=== PATIENT | female | born 1960 | race Caucasian/White ===

== ENCOUNTER → 2017-03-05 | Outpatient (CLI) | payer OTHER ==
--- NOTE | 2017-03-06 11:05 | MM ---
Reason for exam: screening (asymptomatic). Last mammogram was performed 1 year and 5 months ago. History: Patient is postmenopausal. Physical Findings: A clinical breast exam by your physician is recommended on an annual basis and results should be correlated with mammographic findings. MG Screening Mammo w CAD Bilateral CC and MLO view(s) were taken. Prior study comparison: October 20, 2015, bilateral MG screening mammo w CAD. There are scattered fibroglandular densities. No significant changes when compared with prior studies. ASSESSMENT: Benign, BI-RAD 2 RECOMMENDATION: Routine screening mammogram of both breasts in 1 year.
== END | disposition home or self-care (01) ==
LOC: RADMAMWWP 16:52
PROVIDERS: ATTEND Obstetrics & Gynecology
DX: Z12.31 Encounter for screening mammogram for malignant neoplasm of breast (principal)

== ENCOUNTER → 2017-06-23 | Outpatient (CLI) | payer OTHER ==
[2017-06-23 11:11] LABS: Calcium 9.4 mg/dL (8.4-10.2); Potassium 3.9 mmol/L (3.5-5.1); Total Bilirubin 0.4 mg/dL (0.2-1.3); Total Protein 6.7 g/dL (6.3-8.2)
== END | disposition home or self-care (01) ==
LOC: LABWHC1 09:59
PROVIDERS: ATTEND Internal Medicine Endocrinology, Diabetes & Metabolism
DX: E04.2 Nontoxic multinodular goiter (principal); E27.40 Unspecified adrenocortical insufficiency
CPT/HCPCS: 36415; 80053; 84439; 84443

== ENCOUNTER → 2017-08-06 | Outpatient (CLI) | payer OTHER ==
--- NOTE | 2017-08-06 17:02 | US ---
EXAMINATION TYPE: US thyroid st tissue head/neck DATE OF EXAM: 08/06/2017 COMPARISON: US 07/30/2013 CLINICAL HISTORY: E04.2 nontoxic multinodular goiter. GLAND SIZE: Right Lobe: 5.2 x 1.5 x 1.4 cm Overall Parenchyma: homogenous Left Lobe: 4.2 x 1.2 x 1.4 cm Overall Parenchyma: homogeneous Isthmus Thickness: 0.4 cm NODULES RIGHT: # of nodules measured on right: 1 1. 0.5 X 0.5 x 0.5 cm mixed nodule at the lower pole with well-defined margins; . This nodule is w ider than tall and shows no intranodular vascularity. Prior size: this nodule does not appear to correlate with nodule seen on prior exam. LEFT: # of nodules measured on left: 2 1. 1.0 X 0.7 x 0.9 cm isoechoic solid nodule at the lower pole with well-defined margins; . This n odule is wider than tall and shows intranodular vascularity. Prior size: 0.8 x 0.4 x 0.6 cm 2. 0.7 X 0.6 x 0.6 cm echogenic solid nodule at the lower pole with well-defined margins; . This no dule is wider than tall and shows intranodular vascularity. Prior size: 0.5 x 0.3 x 0.3 cm ISTHMUS: # of nodules measured in the isthmus: 0 Bilateral neck scanned, no evidence of lymphadenopathy. Nodules as described, there are a couple subcentimeter nodules right side. IMPRESSION: 1. Minimal enlargement of the left thyroid lobe nodule currently measuring 1.0 x 0.7 x 0.9 cm compare d to 0.8 x 0.6 x 0.4 cm.
== END | disposition home or self-care (01) ==
LOC: RADUSWWP 16:02
PROVIDERS: ATTEND Internal Medicine Endocrinology, Diabetes & Metabolism
DX: E04.1 Nontoxic single thyroid nodule (principal)
CPT/HCPCS: 76536

== ENCOUNTER 2017-11-17 22:44 | Emergency (ER) | payer OTHER ==
[2017-11-17] MEDS ORDERED: SODIUM CHLORIDE 0.9% 1,000 ML IV STA ×2 (23:20)
[2017-11-17] MEDS ORDERED: ACETAMINOPHEN IV (For NPO) 1,000 MG in EMPTY BAG 1 BAG IVPB ONE (23:21)
[2017-11-17] MEDS ORDERED: ONDANSETRON 4 MG/2 ML VIAL IVP STA (23:21)
--- NOTE | 2017-11-17 23:23 | ED ---
General Adult HPI - General Chief complaint: Nausea/Vomiting/Diarrhea Stated complaint: Vomiting Time Seen by Provider: 11/17/17 23:09 Source: patient, RN notes reviewed Mode of arrival: wheelchair Limitations: no limitations - History of Present Illness Initial comments: 57-year-old female history of adrenal insufficiency presents with chief complaint nausea and vomiting. Patient states she vomited approximately 15-20 times which began 6 hours prior to arrival. She denies any abdominal pain. She has had runny nose, and cough. She also complains of headache, and myalgias. Denies any abdominal pain. Denies chest pain. Patient does have a grandson who was diagnosed with influenza. - Related Data Home Medications Medication Instructions Recorded Confirmed Albuterol Inhaler [Ventolin Hfa 1 - 2 puff INHALATION RT-Q6H PRN 01/25/16 Inhaler] Atorvastatin [Lipitor] 10 mg PO HS 01/25/16 05/06/16 Budesonide [Pulmicort] 0.25 mg INHALATION RT-BID PRN 01/25/16 05/06/16 Cholecalciferol [Vitamin D3] 1,000 unit PO DAILY 01/25/16 05/06/16 FLUoxetine HCL [PROzac] 20 mg PO DAILY 01/25/16 05/06/16 Ferrous Sulfate [Feosol] 325 mg PO DAILY 01/25/16 05/06/16 Fluticasone/Salmeterol [Advair 1 puff INHALATION RT-BID 01/25/16 05/06/16 500-50 Diskus] Hydrocortisone [Cortef] 5 mg PO HS 01/25/16 05/06/16 Hydrocortisone [Cortef] 15 mg PO [facility] 01/25/16 05/06/16 Levalbuterol HCl [Xopenex] 1.25 mg INHALATION BID PRN 01/25/16 05/06/16 Montelukast [Singulair] 10 mg PO HS 01/25/16 05/06/16 Pantoprazole Sodium [Protonix] 40 mg PO BID 01/25/16 05/06/16 Vitamin E 1,000 unit PO DAILY 01/25/16 05/06/16 buPROPion XL [Wellbutrin Xl] 150 mg PO DAILY 01/25/16 05/06/16 Previous Rx's Medication Instructions Recorded Ondansetron Odt [Zofran Odt] 4 mg PO Q8HR PRN #10 tab 11/18/17 Oseltamivir [Tamiflu] 75 mg PO Q12HR #10 cap 11/18/17 Allergies Allergy/AdvReac Type Severity Reaction Status Date / Time ampicillin Allergy Rash/Hives Verified 11/17/17 23:29 Sulfa (Sulfonamide Allergy Rash/Hives Verified 11/17/17 23:29 Antibiotics) aspirin AdvReac Wheezing Verified 11/17/17 23:29 Review of Systems ROS Statement: Those systems with pertinent positive or pertinent negative responses have been documented in the HPI. ROS Other: All systems not noted in ROS Statement are negative. Past Medical History Past Medical History: Asthma, GERD/Reflux Additional Past Medical History / Comment(s): adrenal insuff. HX OF POLYP, HX OF BLOOD History of Any Multi-Drug Resistant Organisms: None Reported Past Surgical History: Tubal Ligation Additional Past Surgical History / Comment(s): COLONOSCOPY Past Anesthesia/Blood Transfusion Reactions: No Reported Reaction Past Psychological History: Depression Smoking Status: Never smoker Past Alcohol Use History: None Reported Past Drug Use History: None Reported - Past Family History Mother Family Medical History: No Reported History General Exam Limitations: no limitations General appearance: lethargic Head exam: Present: atraumatic, normocephalic Eye exam: Present: normal appearance, PERRL Respiratory exam: Present: normal lung sounds bilaterally. Absent: respiratory distress Cardiovascular Exam: Present: normal rhythm, tachycardia GI/Abdominal exam: Present: soft. Absent: distended, tenderness, guarding Extremities exam: Present: normal inspection, normal capillary refill. Absent: pedal edema Neurological exam: Present: alert, oriented X3, CN II-XII intact. Absent: motor sensory deficit Psychiatric exam: Present: normal affect, normal mood Skin exam: Present: warm, dry, intact. Absent: cyanosis, diaphoretic Course Vital Signs 11/17/17 11/17/17 22:52 23:57 Temperature 102.3 F H 101.7 F H Pulse Rate 122 H 110 H Respiratory 16 18 Rate Blood Pressure 122/66 125/60 O2 Sat by Pulse 96 95 Oximetry Medical Decision Making - Medical Decision Making 57-year-old female presenting with flulike symptoms. Patient is influenza positive, symptoms began today. Laboratory studies reveal elevated white blood cell count 14.7, hemoglobin 15.1. Electrolytes within normal limits. Lactic acid normal. Urinalysis clear. Chest x-ray negative for pneumonia. Patient given Zofran, and IV hydration. On reevaluation, patient states she feels 100% at her. She is offered observation for continued IV hydration and symptomatic treatment of nausea vomiting. She would not like to stay in the hospital. She has Cortef at home and is instructed to double her dose when she is ill. Patient is comfortable with this. Vomiting improved, no vomiting in the past 2 hours. Patient will return with any worsening or changing symptoms. - Lab Data Result diagrams: 11/17/17 23:55 11/17/17 23:55 Lab Results 11/17/17 11/17/17 11/17/17 Range/Units 22:55 23:55 23:55 WBC 14.7 H (3.8-10.6) k/uL RBC 5.50 H (3.80-5.40) m/uL Hgb 15.1 (11.4-16.0) gm/dL Hct 45.6 (34.0-46.0) % MCV 83.0 (80.0-100.0) fL MCH 27.5 (25.0-35.0) pg MCHC 33.1 (31.0-37.0) g/dL RDW 14.5 (11.5-15.5) % Plt Count 397 (150-450) k/uL Neutrophils % 85 % Lymphocytes % 8 % Monocytes % 5 % Eosinophils % 1 % Basophils % 1 % Neutrophils # 12.5 H (1.3-7.7) k/uL Lymphocytes # 1.2 (1.0-4.8) k/uL Monocytes # 0.7 (0-1.0) k/uL Eosinophils # 0.2 (0-0.7) k/uL Basophils # 0.1 (0-0.2) k/uL Sodium 139 (137-145) mmol/L Potassium 4.4 (3.5-5.1) mmol/L Chloride 100 (98-107) mmol/L Carbon Dioxide 27 (22-30) mmol/L Anion Gap 12 mmol/L BUN 19 H (7-17) mg/dL Creatinine 1.10 H (0.52-1.04) mg/dL Est GFR (MDRD) Af Amer >60 (>60 ml/min/1.73 sqM) Est GFR (MDRD) Non-Af 51 (>60 ml/min/1.73 sqM) Glucose 121 H (74-99) mg/dL Plasma Lactic Acid Kuldip (0.7-2.0) mmol/L Calcium 9.4 (8.4-10.2) mg/dL Total Bilirubin 0.6 (0.2-1.3) mg/dL AST 72 H (14-36) U/L ALT 87 H (9-52) U/L Alkaline Phosphatase 118 (38-126) U/L Total Protein 7.4 (6.3-8.2) g/dL Albumin 4.3 (3.5-5.0) g/dL Urine Color Urine Appearance (Clear) Urine pH (5.0-8.0) Ur Specific Kosse (1.001-1.035) Urine Protein (Negative) Urine Glucose (UA) (Negative) Urine Ketones (Negative) Urine Blood (Negative) Urine Nitrite (Negative) Urine Bilirubin (Negative) Urine Urobilinogen (<2.0) mg/dL Ur Leukocyte Esterase (Negative) Urine RBC (0-5) /hpf Urine WBC (0-5) /hpf Ur Squamous Epith Cells (0-4) /hpf Urine Mucus (None) /hpf Influenza Type A RNA Detected H (Not Detectd) Influenza Type B (PCR) Not Detected (Not Detectd) 11/17/17 11/17/17 Range/Units 23:55 23:55 WBC (3.8-10.6) k/uL RBC (3.80-5.40) m/uL Hgb (11.4-16.0) gm/dL Hct (34.0-46.0) % MCV (80.0-100.0) fL MCH (25.0-35.0) pg MCHC (31.0-37.0) g/dL RDW (11.5-15.5) % Plt Count (150-450) k/uL Neutrophils % % Lymphocytes % % Monocytes % % Eosinophils % % Basophils % % Neutrophils # (1.3-7.7) k/uL Lymphocytes # (1.0-4.8) k/uL Monocytes # (0-1.0) k/uL Eosinophils # (0-0.7) k/uL Basophils # (0-0.2) k/uL Sodium (137-145) mmol/L Potassium (3.5-5.1) mmol/L Chloride (98-107) mmol/L Carbon Dioxide (22-30) mmol/L Anion Gap mmol/L BUN (7-17) mg/dL Creatinine (0.52-1.04) mg/dL Est GFR (MDRD) Af Amer (>60 ml/min/1.73 sqM) Est GFR (MDRD) Non-Af (>60 ml/min/1.73 sqM) Glucose (74-99) mg/dL Plasma Lactic Acid Kuldip 1.3 (0.7-2.0) mmol/L Calcium (8.4-10.2) mg/dL Total Bilirubin (0.2-1.3) mg/dL AST (14-36) U/L ALT (9-52) U/L Alkaline Phosphatase (38-126) U/L Total Protein (6.3-8.2) g/dL Albumin (3.5-5.0) g/dL Urine Color Yellow Urine Appearance Clear (Clear) Urine pH 7.5 (5.0-8.0) Ur Specific Kosse 1.020 (1.001-1.035) Urine Protein 1+ H (Negative) Urine Glucose (UA) Negative (Negative) Urine Ketones Negative (Negative) Urine Blood Negative (Negative) Urine Nitrite Negative (Negative) Urine Bilirubin Negative (Negative) Urine Urobilinogen 2.0 (<2.0) mg/dL Ur Leukocyte Esterase Negative (Negative) Urine RBC 3 (0-5) /hpf Urine WBC 1 (0-5) /hpf Ur Squamous Epith Cells <1 (0-4) /hpf Urine Mucus Few H (None) /hpf Influenza Type A RNA (Not Detectd) Influenza Type B (PCR) (Not Detectd) Disposition Clinical Impression: Dehydration, Influenza Disposition: HOME SELF-CARE Condition: Good Instructions: Acute Nausea and Vomiting (ED), Influenza (ED) Prescriptions: Ondansetron Odt [Zofran Odt] 4 mg PO Q8HR PRN #10 tab PRN Reason: Vomiting Oseltamivir [Tamiflu] 75 mg PO Q12HR #10 cap Referrals: Jorge Alberto Saleh MD [Primary Care Provider] - 1-2 days Time of Disposition: 00:50
[2017-11-18 00:04] LABS: Basophils # (A) 0.1 k/uL (0-0.2); Basophils % (A) 1 %; Eosinophils # (A) 0.2 k/uL (0-0.7); Eosinophils % (A) 1 %; HCT 45.6 % (34.0-46.0); HGB 15.1 gm/dL (11.4-16.0); Lymphocytes # (A) 1.2 k/uL (1.0-4.8); Lymphocytes % (A) 8 %; MCH 27.5 pg (25.0-35.0); MCHC 33.1 g/dL (31.0-37.0); Monocytes # (A) 0.7 k/uL (0-1.0); Monocytes % (A) 5 %; Neutrophils # (A) 12.5 k/uL (1.3-7.7); Neutrophils % (A) 85 %; Platelet Count 397 k/uL (150-450); RDW 14.5 % (11.5-15.5); WBC 14.7 k/uL (3.8-10.6)
[2017-11-18 00:06] LABS: Appearance,Urine Clear (Clear); Bilirubin,Urine Negative (Negative); Blood,Urine Negative (Negative); Color,Urine Yellow; Glucose,Urine (UA) Negative (Negative); Ketones,Urine Negative (Negative); Leukocyte Esterase,Urine Negative (Negative); Mucus,Urine Few /hpf; PH, Urine 7.5 (5.0-8.0); Protein,Urine 1+ (Negative); RBC,Urine 3 /hpf (0-5); Squamous Epithelial Cell,Urine <1 /hpf (0-4); WBC,Urine 1 /hpf (0-5)
--- NOTE | 2017-11-18 00:12 | XR ---
EXAMINATION TYPE: XR chest 2V DATE OF EXAM: 11/18/2017 COMPARISON: 05/12/2012 HISTORY: Fever and vomiting TECHNIQUE: Frontal and lateral views of the chest are obtained. FINDINGS: Heart and mediastinum are normal. Lungs are clear. Diaphragm is normal. Bony thorax is int act. IMPRESSION: Normal chest. No change.
[2017-11-18 00:14] LABS: ALT 87 U/L (9-52); AST 72 U/L (14-36); Albumin 4.3 g/dL (3.5-5.0); Alkaline Phosphatase 118 U/L (38-126); Anion Gap 12 mmol/L; Blood Urea Nitrogen 19 mg/dL (7-17); Calcium 9.4 mg/dL (8.4-10.2); Carbon Dioxide 27 mmol/L (22-30); Chloride 100 mmol/L (98-107); Glucose 121 mg/dL (74-99); Potassium 4.4 mmol/L (3.5-5.1); Sodium 139 mmol/L (137-145); Total Bilirubin 0.6 mg/dL (0.2-1.3); Total Protein 7.4 g/dL (6.3-8.2)
[2017-11-18] MEDS ORDERED: ONDANSETRON 4 MG ODT STARTER PACK 2 TAB BTL PO STA (00:46)
[2017-11-18] MEDS ORDERED: OSELTAMIVIR 75 MG CAP PO STA (00:47)
[2017-11-18 01:45] VITALS: BP 110/58; PULSE 98; RESP 20; TEMP 98.4
== END 2017-11-18 01:45 | disposition home or self-care (01) ==
LOC: EC 22:44
DX: E86.0 Dehydration (principal); J11.1 Influenza due to unidentified influenza virus with other respiratory manifestations; J45.909 Unspecified asthma, uncomplicated; K21.9 Gastro-esophageal reflux disease without esophagitis; F32.9 Major depressive disorder, single episode, unspecified; Z98.51 Tubal ligation status; Z79.51 Long term (current) use of inhaled steroids; Z79.52 Long term (current) use of systemic steroids; Z79.899 Other long term (current) drug therapy; Z88.0 Allergy status to penicillin; Z88.2 Allergy status to sulfonamides; Z88.6 Allergy status to analgesic agent
CPT/HCPCS: 36415; 80053; 83605; 85025; 81001; 87502; 71046; 99284; 96374; 96375; 96361 ×2; J2405; J0131; S0119

== ENCOUNTER → 2018-12-22 | Outpatient (CLI) | payer OTHER ==
--- NOTE | 2018-12-23 11:25 | MM ---
Reason for exam: screening (asymptomatic). Last mammogram was performed 1 year and 10 months ago. History: Patient is postmenopausal. Physical Findings: A clinical breast exam by your physician is recommended on an annual basis and results should be correlated with mammographic findings. MG 3D Screening Mammo W/Cad Bilateral CC and MLO view(s) were taken. Prior study comparison: March 05, 2017, bilateral MG screening mammo w CAD. October 20, 2015, bilateral MG screening mammo w CAD. The breast tissue is heterogeneously dense. This may lower the sensitivity of mammography. Finding #1: There is a new 5 mm elongated circumscribed oval mass located 8 cm from the nipple in the upper outer quadrant, posterior position of the right breast on CC view 40/62 and MLO view 41/55. Finding #2: There are typically benign dystrophic, round, diffuse/scattered calcifications in both breasts. ASSESSMENT: Incomplete: need additional imaging evaluation, BI-RAD 0 RECOMMENDATION: Ultrasound of the right breast. [facility] will attempt to contact patient to return for ultrasound.
== END | disposition home or self-care (01) ==
LOC: RADMAMWWP 06:50
PROVIDERS: ATTEND Family Medicine
DX: Z12.31 Encounter for screening mammogram for malignant neoplasm of breast (principal)
CPT/HCPCS: 77063; 77067

== ENCOUNTER → 2018-12-25 | Outpatient (CLI) | payer OTHER ==
--- NOTE | 2018-12-25 09:46 | USB ---
Reason for exam: additional evaluation requested from abnormal screening. History: Patient is postmenopausal. Physical Findings: Nurse Summary: 0.5cm movable nodule right breast 12 o'clock (nurse mj). US Breast Workup Limited RT Right limited breast ultrasound including focal area of concern, retroareolar and axilla demonstrates a 0.4 x 0.4 x 0.4cm oval, solid, hyperechoic lesion at 12 o'clock. These results were verbally communicated with the patient and result sheet given to the patient on 12/25/18. ASSESSMENT: Suspicious, BI-RAD 4 RECOMMENDATION: Ultrasound core biopsy of the right breast. Manage patient on a clinical basis. Called Dr. Saleh with mammographic findings and left message for order and to schedule follow up appointment for results. Biopsy scheduled for 01/11/19 at 2:00. PRELIMINARY REPORT CALLED AND FAXED TO DR. SALEH ON 12/25/18.
== END ==
LOC: RADUSWWP 07:35
PROVIDERS: ATTEND Family Medicine
DX: R92.8 Other abnormal and inconclusive findings on diagnostic imaging of breast (principal)

== ENCOUNTER → 2019-01-11 | Day surgery (SDC) | payer OTHER ==
[2019-01-11 13:20] VITALS: BP 122/71; PULSE 78; RESP 16; TEMP 98.1; BMI 27.1
--- NOTE | 2019-01-11 17:02 | USB ---
EXAMINATION TYPE: US discontinued breast bx RT DATE OF EXAM: 01/11/2019 CLINICAL HISTORY: 58-year-old female R92.8 abn mammo. TECHNIQUE: Lambert ultrasound-guided core needle biopsy of the right breast. COMPARISON: 12/25/2018 and 12/22/2018 FINDINGS: The procedure of ultrasound guided core biopsy was explained to the patient. Benefits, alt ernatives, and risks were discussed. An informed consent was then obtained. The patient was placed in supine positioning for imaging and for the procedure. Initial scanning demonstrated a similar appearing 4 x 4 x 4 mm heterogeneous lesion showing periphera l echogenicity and central cystic component near the intended biopsy target 12:00, zone B/C. However, this structure is located more superficial than the intended target lesion. Nurse directed real-time scanning at the original palpable site was able to eventually reproduce the intended target lesion. However, this area appeared less defined. The patient denied blood thinner use. However, the patient does report brain children and frequent bu mps to the breast. Small hematomas are suggested. 3 month follow-up exam is recommended. Findings and impression are dis cussed with the patient. IMPRESSION: A second similar lesion to the originally intended biopsy target is identified just adjacent and orig inally intended biopsy target has become less defined now. Both areas measure 4 mm and small hematoma s are suspected especially as the patient reports frequent bones to the breasts. RECOMMENDATION: 1. BI-RADS 3 - probably benign 2. Three-month follow-up diagnostic right breast mammogram and right breast ultrasound. 3. Patient should continue monthly self breast exam.
== END | disposition home or self-care (01) ==
LOC: RADUSWWP 12:45
PROVIDERS: ATTEND Family Medicine
DX: R92.8 Other abnormal and inconclusive findings on diagnostic imaging of breast (principal)

== ENCOUNTER → 2019-01-19 | Outpatient (CLI) | payer OTHER ==
[2019-01-19 14:24] LABS: Basophils # (A) 0.2 k/uL (0-0.2); Basophils % (A) 2 %; Eosinophils # (A) 0.4 k/uL (0-0.7); Eosinophils % (A) 5 %; HGB 14.6 gm/dL (11.4-16.0); Lymphocytes # (A) 1.2 k/uL (1.0-4.8); Lymphocytes % (A) 14 %; MCH 26.4 pg (25.0-35.0); MCHC 32.4 g/dL (31.0-37.0); MCV 81.5 fL (80.0-100.0); Mean Platelet Volume 7.5; Monocytes # (A) 0.4 k/uL (0-1.0); Monocytes % (A) 5 %; Neutrophils # (A) 6.2 k/uL (1.3-7.7); Neutrophils % (A) 72 %; Platelet Count 452 k/uL (150-450); RBC 5.53 m/uL (3.80-5.40); RDW 14.9 % (11.5-15.5); WBC 8.6 k/uL (3.8-10.6)
[2019-01-19 14:33] LABS: ALT 42 U/L (9-52); AST 32 U/L (14-36); Albumin 4.5 g/dL (3.5-5.0); Albumin/Globulin Ratio 1.6; Alkaline Phosphatase 100 U/L (38-126); Amylase 75 U/L (30-110); Anion Gap 8 mmol/L; Blood Urea Nitrogen 26 mg/dL (7-17); Calcium 10.1 mg/dL (8.4-10.2); Carbon Dioxide 26 mmol/L (22-30); Chloride 106 mmol/L (98-107); Globulin 2.8 g/dL; Glucose 105 mg/dL (74-99); Lipase 105 U/L (23-300); Potassium 4.9 mmol/L (3.5-5.1); Sodium 140 mmol/L (137-145); Total Bilirubin 0.5 mg/dL (0.2-1.3); Total Protein 7.3 g/dL (6.3-8.2)
[2019-01-19 19:03] LABS: EBV-VCA (IgG) >8.0 AI
[2019-01-19 20:36] LABS: ACTH <5.00 pg/mL (0.00-45.99)
[2019-01-19 21:35] LABS: DHEA Sulfate 3.4 ug/dL (26.0-430.0)
[2019-01-20 05:29] LABS: Mycoplasma IgM Antibody 0.2 INDEX (<=0.90)
== END | disposition home or self-care (01) ==
LOC: LABWHC1 13:41
PROVIDERS: ATTEND Nurse Practitioner Adult Health
DX: E27.40 Unspecified adrenocortical insufficiency (principal); R07.9 Chest pain, unspecified; R11.0 Nausea; R53.83 Other fatigue
CPT/HCPCS: 36415; 80053; 82024; 82150; 82533; 82627; 83690; 84484; 85025; 85379; 86644; 86645; 86663; 86664; 86665; 86738

== ENCOUNTER → 2019-01-19 | Outpatient (CLI) | payer OTHER ==
--- NOTE | 2019-01-19 16:33 | CT ---
EXAMINATION TYPE: CT angio chest DATE OF EXAM: 01/19/2019 COMPARISON: 05/12/2012 HISTORY: 58-year-old female Elevated d-dimer, nausea and dizziness TECHNIQUE: Contiguous axial scanning of the chest performed with IV Contrast, patient injected with 1 00 mL of Isovue 370. Coronal/sagittal MIP reconstructions performed. CT DLP: 164.6 mGycm Automated exposure control for dose reduction was used. FINDINGS: Heart normal size without pericardial effusion. Aorta normal caliber with a variant direct takeoff of the left vertebral artery directly from the aor tic arch. Satisfactory opacification of the pulmonary arterial system. No flattening of the abdomen or ventricu lar septal reflux of contrast into the hepatic veins. No evidence for pulmonary embolism. No thoracic lymphadenopathy by CT size criteria. Mild diffuse bronchial wall thickening mild interstitial prominence. No consolidation or effusion. [id number] size hiatal hernia. Visualized upper abdomen shows [id number] stool burden. Bones: Mild degenerative disc disease mid to lower thoracic spine. No osseous destructive process. IMPRESSION: 1. NO EVIDENCE FOR PULMONARY EMBOLUS. 2. MILD BRONCHIAL WALL THICKENING AND MILD INTERSTITIAL PROMINENCE, POSSIBLE BRONCHITIS OR ASTHMA. 3. [id number] SIZE HIATAL HERNIA.
== END ==
LOC: RADCTMAIN 15:56
PROVIDERS: ATTEND Nurse Practitioner Adult Health
DX: R79.1 Abnormal coagulation profile (principal); K44.9 Diaphragmatic hernia without obstruction or gangrene
CPT/HCPCS: 71275; Q9967

== ENCOUNTER → 2020-04-18 | Outpatient (CLI) | payer OTHER ==
--- NOTE | 2020-04-18 19:32 | US ---
EXAMINATION TYPE: US thyroid st tissue head/neck DATE OF EXAM: 04/18/2020 COMPARISON: US 2017 CLINICAL HISTORY: E04.2 Nontoxic multinodular goiter. Thyroid nodules GLAND SIZE: Right Lobe: 4.8 x 1.4 x 1.7 cm Overall Parenchyma: homogenous Left Lobe: 4.4 x 1.4 x 1.5 cm Overall Parenchyma: homogeneous Isthmus Thickness: 0.3 cm NODULES RIGHT: # of nodules measured on right: 1 1. 0.6 X 0.5 x 0.6 cm hypoechoic mixed nodule at the mid pole with well-defined margins. This nodul e is wider than tall and shows intranodular vascularity. Prior size: 0.5 x 0.5 x 0.5 cm LEFT: # of nodules measured on left: 2 1. 1.3 X 0.8 x 1.1 cm hypoechoic mixed nodule at the lower pole with well-defined margins. This nod ule is wider than tall and shows intranodular vascularity. Prior size: 1.0 x 0.7 x 0.9 cm 2. 0.6 X 0.6 x 0.5 cm isoechoic solid nodule at the lower pole with poorly defined margins. This nod ule is wider than tall and shows intranodular vascularity. Prior size: 0.7 x 0.6 x 0.6 cm ISTHMUS: # of nodules measured in the isthmus: 0 Bilateral neck scanned, no evidence of lymphadenopathy. IMPRESSION: 1. Essentially stable thyroid nodules.
== END | disposition home or self-care (01) ==
LOC: RADUSWWP 16:12
PROVIDERS: ATTEND Internal Medicine
DX: E04.2 Nontoxic multinodular goiter (principal)
CPT/HCPCS: 76536

== ENCOUNTER → 2020-07-03 | Outpatient (CLI) | payer OTHER ==
--- NOTE | 2020-07-04 09:53 | MM ---
Reason for exam: additional evaluation requested from prior study. Last mammogram was performed 1 year and 6 months ago. History: Patient is postmenopausal. US discontinued breast bx RT of the right breast, January 11, 2019. Physical Findings: Nurse did not find any significant physical abnormalities on exam. MG 3D Diag Mammo W/Cad AKILAH Bilateral CC and MLO view(s) were taken. Prior study comparison: December 22, 2018, bilateral MG 3d screening mammo w/cad. March 05, 2017, bilateral MG screening mammo w CAD. There are scattered fibroglandular densities. Benign oil cyst calcification on the right breast. Previousl posterior right CC view asymmetric density does not persist. No significant new findings when compared with previous films. These results were verbally communicated with the patient and result sheet given to the patient on 07/03/20. ASSESSMENT: Negative, BI-RAD 1 RECOMMENDATION: Routine screening mammogram of both breasts in 1 year.
== END | disposition home or self-care (01) ==
LOC: RADMAMWWP 14:50
PROVIDERS: ATTEND Family Medicine
DX: R92.8 Other abnormal and inconclusive findings on diagnostic imaging of breast (principal)
CPT/HCPCS: 77062; 77066

== ENCOUNTER → 2021-01-18 | Outpatient (CLI) | payer OTHER ==
--- NOTE | 2021-01-18 17:36 | XR ---
EXAMINATION TYPE: XR chest 2V DATE OF EXAM: 01/18/2021 CLINICAL HISTORY: PNEUMONIA. TECHNIQUE: Frontal and lateral view of the chest. COMPARISON: 11/18/2017 FINDINGS: The cardiomediastinal silhouette is within normal limits for size. Pulmonary vasculature i s normal. There is no focal air space opacity. No pleural effusion. No pneumothorax seen. No acute d isplaced osseous fracture. IMPRESSION: No acute cardiopulmonary process.
[2021-01-18 23:34] LABS: HCT 48.3 % (37.2-46.3); MCHC 31.1 g/dL (32.0-37.0); MCV 86.9 fL (80.0-97.0); Mean Platelet Volume 10.5 fL (9.5-12.2); Platelet Count 492 X 10*3/uL (140-440); RBC 5.56 X 10*6/uL (4.10-5.20); RDW 14.1 % (11.5-14.5); WBC 12.47 X 10*3/uL (4.50-10.00)
[2021-01-19 12:49] LABS: African American GFR (CKD) 50.9 (60.0-200.0); Albumin/Globulin Ratio 1.92 (1.60-3.17); Anion Gap 17.2 mmol/L (4.00-12.00); BUN/Creat Ratio 23.08 Ratio (12.00-20.00); Calcium 10.1 mg/dL (8.7-10.3); Carbon Dioxide 22.8 mmol/L (21.6-31.8); Globulin 2.6 g/dL (1.6-3.3); Non-African American GFR(CKD) 43.9 (60.0-200.0); Potassium 4.8 mmol/L (3.5-5.5); Total Bilirubin 0.4 mg/dL (0.3-1.2); Total Protein 7.6 g/dL (6.2-8.2)
== END | disposition home or self-care (01) ==
LOC: LABWHC1 15:36
PROVIDERS: ATTEND Internal Medicine Interventional Cardiology
DX: J18.9 Pneumonia, unspecified organism (principal)
CPT/HCPCS: 36415; 71046; 80053; 85027

== ENCOUNTER → 2021-04-04 | Outpatient (CLI) | payer OTHER ==
--- NOTE | 2021-04-04 17:22 | CT ---
EXAMINATION TYPE: CT angio chest DATE OF EXAM: 04/04/2021 COMPARISON: 01/19/2019 HISTORY: Dyspnea x1 month. CT DLP: 381.6 mGycm Automated exposure control for dose reduction was used. CONTRAST: Performed with IV Contrast, patient injected with 60ml mL of Isovue 370. There are 3-D post processed images. Images obtained from the thoracic inlet to the diaphragm without and with IV contrast. The lungs are clear of infiltrate. There is no pleural effusion. Heart size is normal. There is no pe ricardial effusion. There is no mediastinal adenopathy. There are no hilar masses. There is normal contrast opacification of the pulmonary arteries. There are no filling defects. Thoracic aorta is intact. There is no aneur ysm or dissection. The ascending aorta measures 3.5 cm. Thoracic vertebra have normal spacing and alignment. Disc spaces are normal. There is no compression fracture. Sternum is intact. The ribs are intact. The upper abdominal soft tissues are intact. IMPRESSION: Negative exam. No evidence of pulmonary embolism. No adverse change compared to old exam.
== END | disposition home or self-care (01) ==
LOC: RADCTMAIN 16:39
PROVIDERS: ATTEND Family Medicine
DX: R06.00 Dyspnea, unspecified (principal)
CPT/HCPCS: 71275; Q9967

== ENCOUNTER → 2021-05-29 | Outpatient (CLI) | payer OTHER ==
--- NOTE | 2021-05-29 19:43 | US ---
EXAMINATION TYPE: US thyroid st tissue head/neck DATE OF EXAM: 05/29/2021 COMPARISON: 04/18/2020 CLINICAL HISTORY: 60-year-old female E04.1 thyroid nodule. Thyroid nodule. Hx biopsy. GLAND SIZE: Right Lobe: 5.2 x 1.6 x 1.3 cm Overall Parenchyma: homogenous Left Lobe: 5.3 x 1.4 x 1.2 cm Overall Parenchyma: homogeneous Isthmus Thickness: 0.31 cm NODULES RIGHT: # of nodules measured on right: 2 1. 0.7 X 0.7 x 0.5 cm, mid medial, heterogeneous, hypoechoic TR 4 nodule, which is wider than tall, with smooth margins, without echogenic foci. Prior size: 0.6 x 0.5 x 0.6 cm 2. 0.5 X 0.4 x 0.3 cm, lower, hypoechoic TR 4 nodule, which is wider than tall, with smooth margins , without echogenic foci. Prior size: No prior correlates. LEFT: # of nodules measured on left: 2 1. 0.8 X 0.8 x 0.7 cm, lower lateral, solid or almost completely solid, isoechoic TR 3 nodule, whic h is wider than tall, with smooth margins, without echogenic foci. Prior size: 0.6 x 0.6 x 0.5 cm 2. 0.9 X 0.7 x 0.5 cm, lower, heterogeneous hypoechoic TR5 nodule, which is wider than tall, with s mooth margins, with echogenic foci. Prior size: 1.3 x 0.8 x 1.1 cm ISTHMUS: # of nodules measured in the isthmus: 0 Bilateral neck scanned, no evidence of lymphadenopathy. IMPRESSION: 1. Findings suggest multinodular goiter. 2. There are a few solid TR4 nodules measuring up to 8 mm. A 5 mm TR 4 nodule on the right may be new and the two other TR4 nodules may have increased in size by a couple millimeters. These can continue to be followed. 3. At small 9 mm TR5 nodule (due to the presence of punctate calcifications) in the left lobe has dec reased in size, previously having measured 1.3 cm. This can also be reassessed at follow-up.
== END | disposition home or self-care (01) ==
LOC: RADUSWWP 15:02
PROVIDERS: ATTEND Family Medicine
DX: E04.2 Nontoxic multinodular goiter (principal)
CPT/HCPCS: 76536

== ENCOUNTER 2021-06-04 18:21 | Emergency (ER) | payer OTHER ==
[2021-06-04 18:29] VITALS: RESP 18
[2021-06-04] MEDS ORDERED: HYDROcodone/APAP 5-325MG 1 EACH TAB PO STA ×2 (18:53→22:11)
--- NOTE | 2021-06-04 19:45 | ED ---
Lower Extremity Injury HPI - General Chief Complaint: Extremity Injury, Lower Stated Complaint: Fall/ankle injury Time Seen by Provider: 06/04/21 18:42 Source: patient, EMS Mode of arrival: EMS Limitations: physical limitation - History of Present Illness Initial Comments: This is a 60-year-old female who presents emergency department for right ankle injury. The patient was walking in her garden when she tripped and fell. She states that she twisted her ankle and immediately had pain. She was unable to ambulate afterwards. She states she has no numbness, tingling, or weakness. She states that she has no other injuries. She did not hit her head. No loss of consciousness. She denies any other acute complaints. The patient was placed into a soft splint by EMS and brought emergent department. - Related Data Home Medications Medication Instructions Recorded Confirmed Atorvastatin [Lipitor] 10 mg PO HS 01/25/16 06/04/21 Budesonide [Pulmicort] 0.25 mg INHALATION RT-BID PRN 01/25/16 06/04/21 Hydrocortisone [Cortef] 15 mg PO DAILY 01/25/16 06/04/21 Montelukast [Singulair] 10 mg PO DAILY 01/25/16 06/04/21 Pantoprazole Sodium [Protonix] 40 mg PO BID 01/25/16 06/04/21 buPROPion XL [Wellbutrin Xl] 150 mg PO DAILY 01/25/16 06/04/21 Fluticasone/Salmeterol 1 puff INHALATION RT-BID 06/04/21 06/04/21 [Fluticasone-Salmeterol 232-14] Hydrocortisone [Cortef] 15 mg PO DAILY PRN 06/04/21 06/04/21 Previous Rx's Medication Instructions Recorded HYDROcodone/APAP 5-325MG [[place] 1 tab PO Q6HR PRN 3 Days #8 tab 06/04/21 5-325] Allergies Allergy/AdvReac Type Severity Reaction Status Date / Time ampicillin Allergy Rash/Hives Verified 01/11/19 13:13 Sulfa (Sulfonamide Allergy Rash/Hives Verified 01/11/19 13:13 Antibiotics) aspirin AdvReac Wheezing Verified 01/11/19 13:13 Review of Systems ROS Statement: Those systems with pertinent positive or pertinent negative responses have been documented in the HPI. ROS Other: All systems not noted in ROS Statement are negative. Past Medical History Past Medical History: Asthma, GERD/Reflux Additional Past Medical History / Comment(s): adrenal insuff. HX OF POLYP History of Any Multi-Drug Resistant Organisms: None Reported Past Surgical History: Tubal Ligation Additional Past Surgical History / Comment(s): COLONOSCOPY Past Anesthesia/Blood Transfusion Reactions: No Reported Reaction Past Psychological History: Depression Past Alcohol Use History: None Reported Past Drug Use History: None Reported - Past Family History Mother Family Medical History: No Reported History General Exam - General Exam Comments Initial Comments: Constitutional: Awake alert Appears comfortable Head: Normocephalic atraumatic Eyes: no conjunctival injection No scleral icterus EOMI Neck: No JVD Supple Heart: Regular rate rhythm normal S1-S2 no murmurs Lungs: Clear to auscultation bilaterally No wheezing No rales Abdomen: Soft nondistended nontender Extremities: Non edematous DP pulses intact Radial pulses intact, there is ecchymosis and swelling to the lateral aspect of the right ankle. She has some tenderness along the medial malleolus as well. Good sensation to the toes. Pulses are equal bilaterally and the feet. The patient's able to wiggle her toes bilaterally. Neuro: A&Ox3 No focal neurologic deficits Psych: Appropriate mood and affect Limitations: physical limitation Course Vital Signs 06/04/21 06/04/21 06/04/21 18:25 20:16 21:50 Temperature 98.1 F Pulse Rate 83 76 Respiratory 18 18 18 Rate Blood Pressure 133/76 134/72 O2 Sat by Pulse 98 98 Oximetry 06/04/21 22:18 Temperature 98.3 F Pulse Rate 75 Respiratory 18 Rate Blood Pressure 135/62 O2 Sat by Pulse 94 L Oximetry Procedures - Joint Aspiration/Injection Consent Obtained: verbal consent Indications: to relieve pressure/pain Side of Body: right Joint Aspirated: ankle Skin Prep: Chlorhexidine Local Anesthesia Used: Lidocaine 1% Amount of Anesthesia Used (mLs): 10 Needle Size Used: 22G Syringe Size Used: 10cc Patient Tolerated Procedure: well Complications: none - Orthopedic Splinting/Casting Injury #1 Side: right Lower Extremity Immobilizer: posterior splint, stirrup splint Other Orthopedic Equipment: crutches Medical Decision Making - Medical Decision Making This is 60-year-old female who presents emergency department for right ankle pain after a fall. The patient was found to have a bimalleolar fracture that was laterally displaced. The patient had a hematoma block performed of the right ankle with good relief of pain. It was attempted to manipulate the ankle and to get better alignment. The patient was placed into a posterior mold and stirrup splint. Repeat x-rays did not show much improvement in alignment however patient's going to have close follow-up with orthopedics and likely will require some type of surgical procedure given the extent of the injury. She'll be sent home on crutches and given pain medicine. Told to follow-up with [facility]. All questions answered. Disposition Clinical Impression: Bimalleolar ankle fracture Disposition: HOME SELF-CARE Condition: Stable Instructions (If sedation given, give patient instructions): Ankle Fracture (ED) Prescriptions: HYDROcodone/APAP 5-325MG [[place] 5-325] 1 tab PO Q6HR PRN 3 Days #8 tab PRN Reason: Pain Is patient prescribed a controlled substance at d/c from ED?: No When asked, does pt state using other controlled substances?: No If prescribed controlled substance>3 days was MAPS reviewed?: Prescribed <3 Days If opioid is for acute pain is fill amount 7 days or less?: Yes If Rx opioid, was Start Talking consent form obtained?: Yes Referrals: Jorge Alberto Saleh MD [Primary Care Provider] - 1-2 days Alistair Ramirez MD [Medical Doctor] - 1-2 days
--- NOTE | 2021-06-04 20:05 | XR ---
Result: History: Pain. Comparison: None available. Technique: 3 views of the right ankle. Findings: There is comminuted fracture of the distal fibula involving the lateral malleolus. There is also mild ly displaced fracture of the medial malleolus. There is mild widening of the medial clear space. No e vidence of dislocation. There is additional small subcentimeter ossific density at the dorsal aspect of the talus. Impression: Right ankle bimalleolar fracture with mild widening of the clear spaces. Subtle small talar fracture.
--- NOTE | 2021-06-04 20:58 | XR ---
Result: History: Pain. Comparison: None available. Technique: 3 views of the right knee. Findings: No acute fracture or dislocation is seen. The visualized osseous structures are in anatomic alignmen t. The joint spaces are preserved. Impression: No acute osseous abnormality.
[2021-06-04] MEDS ORDERED: LIDOCAINE 1% INJ 10MG/ML (20 ML MDV) SQ ONE (21:23)
[2021-06-04] MEDS ORDERED: ACET/COD 300 MG/30 MG STARTER PACK 6 TAB BTL PO STA (22:15)
[2021-06-04 22:19] VITALS: BP 135/62; PULSE 75; TEMP 98.3
--- NOTE | 2021-06-04 22:45 | XR ---
EXAMINATION TYPE: XR ankle limited RT DATE OF EXAM: 06/04/2021 COMPARISON: Today HISTORY: Post reduction TECHNIQUE: 2 views FINDINGS: There is bimalleolar fracture of the ankle. There is some comminution of the fibula fractur e. There is mild lateral subluxation of the talus 6 mm. IMPRESSION: Bimalleolar fracture with lateral displacement of the talus. No significant change overal l compared to initial exam. No dislocation.
== END 2021-06-04 22:34 | disposition home or self-care (01) ==
LOC: EC 18:21
DX: S82.841A Displaced bimalleolar fracture of right lower leg, initial encounter for closed fracture (principal); J45.909 Unspecified asthma, uncomplicated; K21.9 Gastro-esophageal reflux disease without esophagitis; F32.9 Major depressive disorder, single episode, unspecified; Z88.2 Allergy status to sulfonamides; Z88.5 Allergy status to narcotic agent; Z88.6 Allergy status to analgesic agent; Z98.51 Tubal ligation status; W01.0XXA Fall on same level from slipping, tripping and stumbling without subsequent striking against object, initial encounter; Y93.01 Activity, walking, marching and hiking
CPT/HCPCS: 99283; 29515; 73562; 73600; 73610; J2001

== ENCOUNTER → 2021-06-07 | Outpatient (CLI) | payer OTHER ==
--- NOTE | 2021-06-07 08:06 | CT ---
EXAMINATION TYPE: CT ankle RT wo con DATE OF EXAM: 06/07/2021 COMPARISON: Plain film x-ray 06/04/2021 HISTORY: Right ankle fracture CT DLP: 357.[address] of the right ankle with reconstruction imaging. TECHNIQUE: Unenhanced CT of the right shoulder was performed with bone and soft tissue window setting s submitted in the axial coronal and sagittal planes. At a separate workstation [id number] TR imaging was o btained. FINDINGS: There is medial malleolar fracture with displacement of 4 mm. Transversely oriented fractures at the level of the ankle mortise. There is comminuted distal fibular fracture involving the distal fibular diaphysis distending into the lateral malleolar region. Displacement of up to 3.2 mm. There is also m ildly comminuted posterior malleolar fracture with displacement of 3.4 mm. Anterior malleolar fractur e is also noted with comminution and displacement of 3.2 mm. There is disruption of the ankle mortise with narrowing laterally of 1 mm with widening medially of 5 mm. There is small avulsion fracture fr om the anterior talus seen best on the sagittal image 40 of 75. Additional osseous fractures are seen adjacent to the anterior portion of the calcaneus with curvilinear bony density seen on sagittal sebastien a set 33 of 75. There is extensive soft tissue edema or ligamentous tears are likely. IMPRESSION: 1. Fractures of the medial and lateral malleolus as well as the anterior and posterior malleolar with the disruption of the ankle mortise. Additional avulsion fractures of the talus and calcaneus as not ed.
== END | disposition home or self-care (01) ==
LOC: RADCTMAIN 06:59
PROVIDERS: ATTEND Orthopaedic Surgery
DX: S82.841A Displaced bimalleolar fracture of right lower leg, initial encounter for closed fracture (principal)

== ENCOUNTER → 2021-06-07 | Outpatient (CLI) | payer OTHER | END | disposition home or self-care (01) | LOC: LABWHC1 07:36 | PROVIDERS: ATTEND Family Medicine | DX: E55.9 Vitamin D deficiency, unspecified (principal) | CPT/HCPCS: 36415; 82306 ==

== ENCOUNTER 2021-06-09 23:19 | Emergency (ER) | payer OTHER ==
[2021-06-09 23:42] VITALS: BP 125/73; PULSE 88; RESP 20; TEMP 98.3
--- NOTE | 2021-06-10 02:29 | ED ---
Lower Extremity Injury HPI - General Chief Complaint: Extremity Injury, Lower Stated Complaint: Foot Issue/recheck Time Seen by Provider: 06/10/21 01:24 Source: patient Mode of arrival: wheelchair Limitations: no limitations - History of Present Illness Initial Comments: 60-year-old female presents to the emergency department with a chief complaint of foot pain. Patient reports several days ago she was diagnosed with a bimalleolar ankle fracture right ankle. States she has been wearing a splint and has ready seen the orthopedic doctor who advised her to continue wearing the splint until she undergo surgery. States she has not had any difficulty with the splint until yesterday when her grandson accidentally hit it. However, she states it was very gentle however now she began to develop some erythema along the dorsal aspect of the foot. She does report some pain due to pressure but denies any any fevers or chills. She states that her splint feels tight. States she has been applying Neosporin on it. She denies any paresthesias to the leg. - Related Data Home Medications Medication Instructions Recorded Confirmed Atorvastatin [Lipitor] 10 mg PO HS 01/25/16 06/04/21 Budesonide [Pulmicort] 0.25 mg INHALATION RT-BID PRN 01/25/16 06/04/21 Hydrocortisone [Cortef] 15 mg PO DAILY 01/25/16 06/04/21 Montelukast [Singulair] 10 mg PO DAILY 01/25/16 06/04/21 Pantoprazole Sodium [Protonix] 40 mg PO BID 01/25/16 06/04/21 buPROPion XL [Wellbutrin Xl] 150 mg PO DAILY 01/25/16 06/04/21 Fluticasone/Salmeterol 1 puff INHALATION RT-BID 06/04/21 06/04/21 [Fluticasone-Salmeterol 232-14] Hydrocortisone [Cortef] 15 mg PO DAILY PRN 06/04/21 06/04/21 Previous Rx's Medication Instructions Recorded HYDROcodone/APAP 5-325MG [[place] 1 tab PO Q6HR PRN 3 Days #8 tab 06/04/21 5-325] Cephalexin [Keflex] 500 mg PO Q6HR #40 cap 06/10/21 Allergies Allergy/AdvReac Type Severity Reaction Status Date / Time ampicillin Allergy Rash/Hives Verified 06/09/21 23:42 Sulfa (Sulfonamide Allergy Rash/Hives Verified 06/09/21 23:42 Antibiotics) aspirin AdvReac Wheezing Verified 06/09/21 23:42 Review of Systems ROS Statement: Those systems with pertinent positive or pertinent negative responses have been documented in the HPI. ROS Other: All systems not noted in ROS Statement are negative. Past Medical History Past Medical History: Asthma, GERD/Reflux Additional Past Medical History / Comment(s): adrenal insuff. HX OF POLYP History of Any Multi-Drug Resistant Organisms: None Reported Past Surgical History: Tubal Ligation Additional Past Surgical History / Comment(s): COLONOSCOPY Past Anesthesia/Blood Transfusion Reactions: No Reported Reaction Past Psychological History: Depression Smoking Status: Never smoker Past Alcohol Use History: None Reported Past Drug Use History: None Reported - Past Family History Mother Family Medical History: No Reported History General Exam Limitations: no limitations General appearance: alert, in no apparent distress Head exam: Present: atraumatic, normocephalic, normal inspection Eye exam: Present: normal appearance, PERRL, EOMI Pupils: Present: normal accommodation ENT exam: Present: normal exam, normal oropharynx, mucous membranes moist Neck exam: Present: normal inspection, full ROM. Absent: tenderness Respiratory exam: Present: normal lung sounds bilaterally. Absent: respiratory distress Cardiovascular Exam: Present: regular rate, normal rhythm, normal heart sounds. Absent: systolic murmur Extremities exam: Present: tenderness (Tenderness over the injured site), normal capillary refill, other (Palpable DP and PT bilaterally. Sensation intact in the right leg). Absent: normal inspection (Mild erythema noted dorsal aspect of the foot. Does not appear to be warm. The rest of the skin.), full ROM (Limited range of motion in the right leg), pedal edema, joint swelling, calf tenderness Back exam: Present: normal inspection, full ROM Neurological exam: Present: alert, oriented X3 Psychiatric exam: Present: normal affect, normal mood Skin exam: Present: warm, dry, intact, normal color Course Vital Signs 06/09/21 23:39 Temperature 98.3 F Pulse Rate 88 Respiratory 20 Rate Blood Pressure 125/73 O2 Sat by Pulse 97 Oximetry Medical Decision Making - Medical Decision Making 60-year-old female presents to the emergency department with a chief complaint of right leg pain. I reviewed her medical records and the patient has a bimalleolar fracture of the right leg. She is neurovascularly intact. She had a posterior splint with ankle stirrup applied. I removed the splint because the patient continued to complain that it felt tight. There is some erythematous changes on the dorsal aspect of the right foot, however I do not suspect this to be infectious at this time. Suspect more inflammatory change. However, I will cover for cellulitis prophylactically. I did apply the same posterior splint but he used a new ankle stirrup in order to help alleviate the feeling of tightness. Patient reportedly feels much better and the pressure has been greatly reduced. Strict return parameters were thoroughly discussed the patient was resting and agreeable. Disposition Clinical Impression: Foot pain, right Disposition: HOME SELF-CARE Condition: Stable Instructions (If sedation given, give patient instructions): Foot Contusion (ED) Additional Instructions: Please return to the Emergency Department if symptoms worsen or any other concerns. Prescriptions: Cephalexin [Keflex] 500 mg PO Q6HR #40 cap Is patient prescribed a controlled substance at d/c from ED?: No Referrals: Jorge Alberto Saleh MD [Primary Care Provider] - 1-2 days Time of Disposition: 03:08
[2021-06-10] MEDS ORDERED: CEPHALEXIN 500 MG CAP PO STA (03:06)
== END 2021-06-10 03:29 | disposition home or self-care (01) ==
LOC: EC 23:19
DX: M79.671 Pain in right foot (principal); J45.909 Unspecified asthma, uncomplicated; K21.9 Gastro-esophageal reflux disease without esophagitis; Z88.0 Allergy status to penicillin; Z88.2 Allergy status to sulfonamides; Z88.6 Allergy status to analgesic agent; Z79.899 Other long term (current) drug therapy; Z79.51 Long term (current) use of inhaled steroids
CPT/HCPCS: 99283

== ENCOUNTER → 2021-06-12 | Outpatient (CLI) | payer OTHER ==
[2021-06-12 14:37] LABS: Basophils # (A) 0.1 k/uL (0-0.2); Basophils % (A) 1 %; Eosinophils # (A) 0.6 k/uL (0-0.7); Eosinophils % (A) 5 %; HCT 41.7 % (34.0-46.0); Lymphocytes % (A) 19 %; MCH 27.7 pg (25.0-35.0); MCHC 31.3 g/dL (31.0-37.0); MCV 88.5 fL (80.0-100.0); Mean Platelet Volume 7.1; Monocytes # (A) 0.5 k/uL (0-1.0); Monocytes % (A) 5 %; Neutrophils % (A) 68 %; Platelet Count 517 k/uL (150-450); RBC 4.71 m/uL (3.80-5.40); RDW 13.3 % (11.5-15.5); WBC 10.4 k/uL (3.8-10.6)
[2021-06-12 14:44] LABS: ALT 29 U/L (4-34); AST 34 U/L (14-36); African American GFR (CKD) 63 (>60 ml/min/1.73 sqM); Albumin/Globulin Ratio 1.4; Alkaline Phosphatase 105 U/L (38-126); Anion Gap 9 mmol/L; Blood Urea Nitrogen 29 mg/dL (7-17); Calcium 9.5 mg/dL (8.4-10.2); Carbon Dioxide 28 mmol/L (22-30); Chloride 103 mmol/L (98-107); Globulin 2.8 g/dL; Glucose 96 mg/dL (74-99); Non-African American GFR(CKD) 55 (>60 ml/min/1.73 sqM); Potassium 4.4 mmol/L (3.5-5.1); Sodium 140 mmol/L (137-145); Total Bilirubin 0.6 mg/dL (0.2-1.3); Total Protein 6.8 g/dL (6.3-8.2)
[2021-06-12 14:45] LABS: INR 0.9 (<1.2); Prothrombin Time 10.2 sec (9.0-12.0)
== END | disposition home or self-care (01) ==
LOC: LABWHC1 14:10
PROVIDERS: ATTEND Nurse Practitioner Adult Health
DX: Z01.812 Encounter for preprocedural laboratory examination (principal)
CPT/HCPCS: 36415; 80053; 85025; 85610

== ENCOUNTER 2021-06-13 10:38 | Observation (INO) | payer OTHER ==
[2021-06-12 12:54] VITALS: BMI 28.3
[~2021-06-13 10:38] MED LIST: LIDOCAINE 1% (10MG/ML) FOR IV START INTRADERMA PRN; ONDANSETRON 4 MG/2 ML VIAL IVP ONE; SCOPOLAMINE 1.5MG/72HR PATCH TRANSDERM ONE
[2021-06-13] MEDS ORDERED: HYDROCORTISONE SUCCINATE 100 MG/2 ML VIAL IV STA ×2 (11:30→11:31)
[2021-06-13] MEDS: LACTATED RINGERS 1,000 ML IV SCH ×3 (11:49→17:56)
[2021-06-13] MEDS ORDERED: MIDAZOLAM 2 MG/2 ML VIAL IVP ONE (12:17)
[2021-06-13] MEDS ORDERED: fentaNYL (PF) 50 MCG/ML 2 ML AMP IVP ONE (12:17)
--- NOTE | 2021-06-13 12:54 | P.ANPRN ---
Procedure Note - Anesthesia - Nerve Block Performed Right Popliteal Single Time Out Performed: Yes (1215) Date of Procedure: 06/13/21 Procedure Start Time: 12:17 Procedure Stop Time: 12:22 Location of Patient: PreOp Indication: Acute Post-Operative Pain, Requested by Surgeon Specifically requested for management of pain by DrJesse: Alistair Ramirez Sedation Type: Sedate with meaningful contact maintained Preparation: Sterile Prep Position: Left Lateral Catheter: None Needle Types: Pajunk Needle Gauge: 21 Ultrasound used to visualize needle placement: Yes Ultrasound used to observe medication spread: Yes Injectate: 0.5% Ropivacaine (see comment for volume) (15cc +5cc nacl) Blood Aspirated: No Pain Paresthesia on Injection Noted: No Resistance on Injection: Normal Image Stored and Saved: Yes Events: Uneventful and Well Tolerated Right Adductor Canal Single Time Out Performed: Yes (1215) Date of Procedure: 06/13/21 Procedure Start Time: 12:23 Procedure Stop Time: 12:28 Location of Patient: PreOp Indication: Acute Post-Operative Pain, Requested by Surgeon Specifically requested for management of pain by Dr.: Alistair Ramirez Sedation Type: Sedate with meaningful contact maintained Preparation: Sterile Prep Position: Supine Catheter: None Needle Types: Pajunk Needle Gauge: 21 Ultrasound used to visualize needle placement: Yes Ultrasound used to observe medication spread: Yes Injectate: 0.5% Ropivacaine (see comment for volume) (15cc + 5cc nacl pf) Blood Aspirated: No Pain Paresthesia on Injection Noted: No Resistance on Injection: Normal Image Stored and Saved: Yes Events: Uneventful and Well Tolerated
[2021-06-13] MEDS ORDERED: PROPOFOL 10 MG/ML 20 ML VIAL IV ONE (13:19)
[2021-06-13] MEDS ORDERED: ROPIVACAINE 5 MG/ML 30 ML VIAL ONE (13:19)
[2021-06-13] MEDS ORDERED: SODIUM CHLORIDE 0.9% (PF) 10 ML VIAL ONE (13:19)
[2021-06-13] MEDS ORDERED: fentaNYL (PF) 50 MCG/ML 2 ML AMP ONE (13:19)
[2021-06-13] MEDS ORDERED: ALBUTEROL HFA INHALER INHALATION ONE (13:19)
[2021-06-13] MEDS ORDERED: SUCCINYLCHOLINE CHLORIDE 100 MG/5 ML SYR IV ONE (13:19)
[2021-06-13] MEDS ORDERED: LIDOCAINE 1% INJ 10MG/ML (20 ML MDV) ONE (13:19)
--- NOTE | 2021-06-13 15:05 | XR ---
Fluoroscopy History: ORIF RT ANKLE DR. CONKLIN SUPERVISED USE OF BELA TO REPAIR A FRACTURED RIGHT ANKLE. FL TIME OF1.16 MINS
[2021-06-13] MEDS ORDERED: HYDROcodone/APAP 5-325MG 1 EACH TAB PO PRN (15:21)
[2021-06-13] MEDS ORDERED: SENNOSIDES-DOCUSATE SODIUM 1 EACH TAB PO PRN (15:21)
[2021-06-13] MEDS ORDERED: hydrOXYzine pamoate 25 MG CAP PO PRN (15:21)
[2021-06-13] MEDS ORDERED: HYDROmorphone 1 MG/ML 1 ML SYRINGE IVP PRN (15:21)
[2021-06-13] MEDS ORDERED: HYDROmorphone 0.2 MG/1 ML SYRINGE IVP PRN (15:21)
[2021-06-13] MEDS: HYDROmorphone 0.5 MG/0.5 ML SYRINGE IVP PRN ×2 (15:29→15:35)
--- NOTE | 2021-06-13 15:33 | P.OP ---
Date of Procedure: 06/13/21 Preoperative Diagnosis: 1. Closed right trimalleolar ankle fracture dislocation 2. Chronic steroid use due to adrenal insufficiency Postoperative Diagnosis: Same Procedure(s) Performed: 1. Open reduction internal fixation of right trimalleolar ankle fracture (open reduction and internal fixation of medial and lateral malleolus, nonoperative management posterior malleolus) 2. Manual application of joint stress for radiography, right ankle 3. Application of short-leg splint by physician, right ankle Anesthesia: ARACELI, regional Surgeon: Alistair Ramriez Technical Consultant #1: Shirlene Marques Estimated Blood Loss (ml): 25 Pathology: none sent Condition: stable Disposition: PACU Indications for Procedure: The patient is a very pleasant 60-year-old female who fell and sustained a left ankle fracture dislocation. She underwent closed reduction and splint application in the emergency department. She followed up in my office for definitive management. I recommended open reduction and internal fixation once her swelling had subsided. She is on chronic steroids for adrenaline sufficiency and we discussed the potential risks of this and how it increased the complexity of her surgery. We discussed the potential risks and complications of surgery including but not limited to risk of anesthesia, superficial infection, deep infection, delayed wound healing, wound necrosis, nonunion, malunion, malreduction of the ankle mortise, symptomatically hardware, damage to local blood vessels or nerves, inability to regain preinjury level of function, DVT, PE, other medical complications, and possibly loss of life or limb. The patient voiced understanding of these potential complications and also acknowledges that other less common complications are possible. She provided her verbal and written consent to go forward with surgery. Description of Procedure: The patient was identified in preoperative holding and the correct right leg was marked my initials. I reviewed the consent form with the patient and her . All their questions were answered. She was given a block by anesthesia. She was brought back to the operating room and positioned on the OR table where a general anesthetic and preoperative antibiotics were given. A tourniquet was applied the proximal aspect of the right leg. Prior to prepping and draping imaging was taken of the left ankle to use as an intraoperative template. The right leg was then prepped and draped in the standard sterile fashion. Prior to starting surgery timeout was performed identifying the correct patient, operative extremity, and procedure. The leg was then elevated, exsanguinated with an Esmarch and age, and the tourniquet was inflated to 250 mmHg. Due to the significant comminution in the fibula I elected to reduce and fixate the medial malleolus first to allow gnosticist of fibular length. A longitudinal incision was made over the medial malleolus. Skin incision was made a scalpel and dissection was carried down carefully with tenotomy scissors. The periosteum over the medial malleolus was sharply incised. The patient was noted to have very poor bone quality. A 2.0 mm drill bit was used to create a unicortical perforation just proximal to the fracture. One gladys of a [id number] reduction clamp was placed in this hole and the second gladys was placed at the tip of the medial malleolus. I very gently tightened the clamp which nicely reapproximated the fracture. I then placed a single 4.0 partially threaded screw across the fracture generating excellent compression. Due to the comminution anteriorly and the placement of the screw I elected to only place a single screw for fear of further damaging the area of comminution. Attention was then turned to the lateral malleolus. A 3 cm incision was made distally over the tip of the distal fibula and a second 3 cm incision was made just proximal to the fracture over the shaft of the fibula. Distally dissection was carried down and the periosteum was elevated off of the fibula. Proximally the peroneal fascia was incised longitudinally in line with the skin incision and dissection was carried down to the lateral fibula. A [id number] reduction clamp was used to pull the distal fibula longitudinally until the left ankle mortise and fibular length was comparable to the preoperative image of the left ankle. A 0.0625 K wire was placed eccentric leg to the fibula to hold fibular length. I then placed a precontoured fibular plate from the distal wound proximally. It was centered over the fibula proximally and distally. 3 nonlocking 3.5 screws were placed proximally nicely bringing the plate down to bone. Distally 4 locking 3.5 mm screws were placed. Due to the patient's poor bone quality a tri cortical syndesmotic screws place for added fixation. At this point final fluoroscopic images were taken a mortise view showed anatomic reduction of the ankle mortise and gnosticist of fibular length. A manual external rotation stress x-ray showed no widening of the medial clear space or incisura. A 2 lateral showed the talus concentrically reduced under the tibial plafond. The posterior malleolus was minimally displaced. All 3 wounds were then thoroughly irrigated and closed in layers. Sterile dressings were applied followed by a well-padded bulky Whitt splint with the ankle neutral. The patient was then awoken from her anesthetic, transferred from the OR table to a gurney, and brought to recovery having tolerated the procedure well. Shirlene Marques PAC was required as a skilled household assistant due to the complexity of the case. PLAN: She'll be admitted overnight due to her need for IV steroids. She'll receive 2 doses of postoperative antibiotics. She will receive 100 mg of hydrocortisone IV every 8 hours until she is able to tolerate oral diet and then we'll take hydrocortisone 30 mg daily 1 week after surgery. We will double check her aspirin ALLERGY and if she can tolerate aspirin will give her aspirin 81 mg twice a day 4 weeks as she has low risk for DVT. She'll be nonweightbearing for at least 6-8 weeks due to her poor bone quality and chronic steroid use.
[2021-06-13 17:13] LABS: Glucose,Whole Blood 125 mg/dL (75-99)
[2021-06-13] MEDS: HYDROcodone/APAP 5-325MG 1 EACH TAB PO PRN (17:55)
[2021-06-13] MEDS: HYDROCORTISONE SUCCINATE 100 MG/2 ML VIAL IV SCH (17:56)
--- NOTE | 2021-06-13 18:01 | P.CONS ---
History of Present Illness - Reason for Consult Consult date: 06/13/21 - Chief Complaint Med mgmt - History of Present Illness 60 year old woman with history of Asthma, adrenal insufficiency, mood disorder, hyperlipidemia, GERD presented for ORIF for ankle fracture. Medicine consulted for medical management. Patients only complaint at the moment is pain in the ankle, but this is controlled. Denies fevers, chills, n/v, cp, palps, cough, dyspnea, abd pain, c/d, dysuria, dyschezia, numbness/weakness, lightheadedness, dizziness. Review of Systems All Systems reviewed and pertinent positives and negatives noted in HPI, all other symptoms are negative Past Medical History Past Medical History: Asthma, GERD/Reflux Additional Past Medical History / Comment(s): adrenal insuff. HX OF POLYP. FX RT ANKLE 06/04/21. RT ANKLE ORIF 06/13/21 History of Any Multi-Drug Resistant Organisms: None Reported Past Surgical History: Tubal Ligation Additional Past Surgical History / Comment(s): COLONOSCOPY Past Anesthesia/Blood Transfusion Reactions: No Reported Reaction Past Psychological History: Depression Smoking Status: Never smoker Past Alcohol Use History: None Reported Past Drug Use History: None Reported - Past Family History Mother Family Medical History: No Reported History Medications and Allergies Home Medications Medication Instructions Recorded Confirmed Type Atorvastatin [Lipitor] 10 mg PO HS 01/25/16 06/12/21 History Budesonide [Pulmicort] 0.25 mg INHALATION RT-BID PRN 01/25/16 06/12/21 History Hydrocortisone [Cortef] 15 mg PO DAILY 01/25/16 06/12/21 History Montelukast [Singulair] 10 mg PO DAILY 01/25/16 06/12/21 History Pantoprazole Sodium [Protonix] 40 mg PO BID 01/25/16 06/12/21 History buPROPion XL [Wellbutrin Xl] 150 mg PO DAILY 01/25/16 06/12/21 History Fluticasone/Salmeterol 1 puff INHALATION RT-BID 06/04/21 06/12/21 History [Fluticasone-Salmeterol 232-14] HYDROcodone/APAP 5-325MG [[place] 1 tab PO Q6HR PRN 3 Days #8 tab 06/04/21 06/12/21 Rx 5-325] Hydrocortisone [Cortef] 15 mg PO DAILY PRN 06/04/21 06/12/21 History Cephalexin [Keflex] 500 mg PO Q6HR #40 cap 06/10/21 06/12/21 Rx Vilazodone HCl [Viibryd] 20 mg PO DAILY 06/12/21 06/12/21 History Allergies Allergy/AdvReac Type Severity Reaction Status Date / Time ampicillin Allergy Rash/Hives Verified 06/13/21 11:21 Sulfa (Sulfonamide Allergy Rash/Hives Verified 06/13/21 11:21 Antibiotics) aspirin AdvReac Wheezing Verified 06/13/21 11:21 Physical Exam Osteopathic Statement: *. No significant issues noted on an osteopathic structural exam other than those noted in the History and Physical/Consult. Vitals: Vital Signs Temp Pulse Pulse Resp BP Pulse Ox 06/13/21 16:31 83 16 149/68 92 L 06/13/21 16:17 82 18 143/69 98 06/13/21 16:02 88 18 144/67 100 06/13/21 15:47 82 18 150/87 100 06/13/21 15:32 92 18 148/70 99 06/13/21 15:22 97 F L 97 18 153/70 98 06/13/21 12:27 82 16 142/65 98 06/13/21 11:23 97.8 F 92 18 146/70 97 Intake and Output 06/13/21 06/13/21 06/13/21 06:59 14:59 22:59 Intake Total 150 500 Output Total 125 Balance 25 500 Intake: IV 150 500 Output: Urine 100 Estimated Blood Loss 25 Other: Weight 75.8 kg 75.8 kg Gen: awake, alert HEENT: normocephalic, atraumatic, good hearing acuity, moist mucous membranes Resp: good air exchange, breathing comfortably with no accessory muscle use CVS: good distal perfusion x 4, GI: soft, NTTP, ND : no SPT, no CVAT, correa catheter not present MSK: no pitting edema, no clubbing Neuro: non-focal, moving all extremities Psych: cooperative, euthymic mood Results Labs: Abnormal Lab Results - Last 24 Hours (Table) 06/13/21 Range/Units 17:12 POC Glucose (mg/dL) 125 H (75-99) mg/dL Assessment and Plan Assessment: Adrenal Insufficiency - agree with stress dose steroids, 100mg IV q8h hydrocortisone - if tolerating PO tomorrow, can return to PO home dose Asthma Hyperlipidemia GERD Mood Disorder - home medications reviewed and reconciled, no changes made at this time, okay to resume A member of [employer] is available 07/04 via perfect serve, please reach out if any questions or concerns.
[2021-06-14] MEDS: HYDROCORTISONE SUCCINATE 100 MG/2 ML VIAL IV SCH ×2 (00:03→08:02)
[2021-06-14] MEDS: LACTATED RINGERS 1,000 ML IV SCH ×3 (03:31→12:08)
[2021-06-14] MEDS: HYDROmorphone 0.5 MG/0.5 ML SYRINGE IVP PRN ×2 (04:32→09:17)
[2021-06-14] MEDS: ONDANSETRON 4 MG/2 ML VIAL IVP PRN ×2 (04:33→09:19)
[2021-06-14] MEDS: HYDROcodone/APAP 5-325MG 1 EACH TAB PO PRN ×4 (05:56→20:59)
[2021-06-14] MEDS: MONTELUKAST 10 MG TAB PO SCH (07:11)
[2021-06-14] MEDS: PANTOPRAZOLE 40 MG TABLET PO SCH ×2 (07:12→20:58)
[2021-06-14] MEDS: buPROPion XL 150 MG TAB.ER.24H PO SCH (07:12)
[2021-06-14] MEDS: SYMBICORT 160-4.5 MCG INHALER INHALATION SCH ×2 (07:39→20:36)
[2021-06-14] MEDS ORDERED: BUDESONIDE 0.25 MG/2 ML NEBU INHALATION PRN (08:00)
[2021-06-14 09:18] LABS: Basophils # (A) 0.05 X 10*3/uL (0.00-0.10); Basophils % (A) 0.3 %; Eosinophils # (A) 0 X 10*3/uL (0.04-0.35); Eosinophils % (A) 0 %; HCT 35.4 % (37.2-46.3); HGB 11.1 g/dL (12.0-15.0); Lymphocytes # (A) 1.06 X 10*3/uL (0.90-5.00); Lymphocytes % (A) 6.5 %; MCH 27.2 pg (27.0-32.0); MCHC 31.4 g/dL (32.0-37.0); MCV 86.8 fL (80.0-97.0); Mean Platelet Volume 9.9 fL (9.5-12.2); Monocytes # (A) 0.79 X 10*3/uL (0.20-1.00); Monocytes % (A) 4.8 %; Neutrophils # (A) 14.32 X 10*3/uL (1.80-7.70); Neutrophils % (A) 87.8 %; Platelet Count 536 X 10*3/uL (140-440); RBC 4.08 X 10*6/uL (4.10-5.20); RDW 13.5 % (11.5-14.5); WBC 16.32 X 10*3/uL (4.50-10.00)
--- NOTE | 2021-06-14 10:24 | P.PN ---
Subjective Progress Note Date: 06/14/21 Gen: awake, alert HEENT: normocephalic, atraumatic, good hearing acuity, moist mucous membranes Resp: good air exchange, breathing comfortably with no accessory muscle use CVS: good distal perfusion x 4, GI: soft, NTTP, ND : no SPT, no CVAT, correa catheter not present MSK: no pitting edema, no clubbing Neuro: non-focal, moving all extremities Psych: cooperative, euthymic mood Objective - Vital Signs Vital signs: Vital Signs Temp 97.6 F 06/14/21 08:00 Pulse 90 06/14/21 08:00 Resp 16 06/14/21 08:00 BP 128/65 06/14/21 08:00 Pulse Ox 96 06/14/21 08:00 Intake & Output 06/13/21 06/14/21 06/14/21 18:59 06:59 18:59 Intake Total 650 Output Total 125 500 Balance 525 -500 Weight 75.8 kg Intake: IV 650 Output: Urine 100 500 Estimated Blood Loss 25 Other: Voiding Method Toilet Bedpan Bedside Commode # Voids 4 - Labs Labs: Abnormal Lab Results - Last 24 Hours (Table) 06/13/21 Range/Units 17:12 POC Glucose (mg/dL) 125 H (75-99) mg/dL Assessment and Plan Assessment: Adrenal Insufficiency - agree with stress dose steroids, 100mg IV q8h hydrocortisone - if tolerating PO tomorrow, can return to PO stress dose on 06/15 Asthma Hyperlipidemia GERD Mood Disorder - home medications reviewed and reconciled, no changes made at this time, okay to resume A member of sound physicians is available 07/04 via perfect serve, please reach out if any questions or concerns.
[2021-06-14] MEDS: ASPIRIN 81 MG PO SCH ×2 (12:08→20:58)
--- NOTE | 2021-06-14 16:41 | P.PN ---
Subjective Progress Note Date: 06/14/21 This patient is a 60-year-old female who is status-post right ankle ORIF on 06/13/[address] Ramirez. Today is postoperative day #1. The patient is seen and examined bedside this morning. She states she is experiencing moderate pain in her ankle. She states she was up to the bathroom yesterday after surgery. She is voiding without issue. She has been using IV Dilaudid and oral [place] for pain control. Patient states she has taken aspirin in the past and has tolerated it well. She tolerated her breakfast well and is eating without issue. She denies chest pain, shortness of breath, nausea, vomiting, fevers, chills. There are no new complaints this morning. Vital signs stable. Objective - Vital Signs Vital signs: Vital Signs Temp 98.8 F 06/14/21 13:19 Pulse 93 06/14/21 13:19 Resp 16 06/14/21 13:19 BP 132/68 06/14/21 13:19 Pulse Ox 94 L 06/14/21 13:19 Intake & Output 06/13/21 06/14/21 06/14/21 18:59 06:59 18:59 Intake Total 650 Output Total 125 500 Balance 525 -500 Weight 75.8 kg Intake: IV 650 Output: Urine 100 500 Estimated Blood Loss 25 Other: Voiding Method Toilet Bedpan Bedside Commode # Voids 4 3 - Exam On examination, the patient is sitting up in bed in no apparent distress. She is alert and oriented 3. On inspection of her right ankle, there is a clean, dry, intact bulky Whitt splint placed. The visible portion of the toes are warm and well perfused with brisk capillary refill. There is no pain with passive [id number] of the toes. Patient is able to wiggle toes appropriately. - Labs CBC & Chem 7: 06/14/21 05:33 Labs: Abnormal Lab Results - Last 24 Hours (Table) 06/13/21 06/14/21 Range/Units 17:12 05:33 WBC 16.32 H (4.50-10.00) X 10*3/uL RBC 4.08 L (4.10-5.20) X 10*6/uL Hgb 11.1 L (12.0-15.0) g/dL Hct 35.4 L (37.2-46.3) % MCHC 31.4 L (32.0-37.0) g/dL Plt Count 536 H (140-440) X 10*3/uL Immature Gran # 0.10 H (0.00-0.04) X 10*3/uL Neutrophils # 14.32 H (1.80-7.70) X 10*3/uL Eosinophils # 0 L (0.04-0.35) X 10*3/uL POC Glucose (mg/dL) 125 H (75-99) mg/dL Assessment and Plan Assessment: Status-post right ankle open reduction and internal fixation on 06/13/21. Post- operative day #1. Plan: - Keep splint clean, dry, intact. Strict nonweightbearing operative extremity. - Physical therapy for gait and balance training. - Pain management as needed. Decrease use of IV diluadid as tolerated. - Aspirin for DVT prophylaxis. Patient has this listed as an allergy, but per patient, she has taken in the past without issue and is comfortable taking this medication. - Appreciate internal medicine for bryan-operative medical management. IV hydrocortisone has been discontinued per IM, and patient will be started on oral hydrocortisone. - Anticipate discharge home tomorrow.
[2021-06-14] MEDS ORDERED: HYDROCORTISONE 10 MG TAB PO SCH (21:00)
[2021-06-14] MEDS ORDERED: ATORVASTATIN 10 MG TAB PO SCH (21:00)
[2021-06-14] MEDS: HYDROCORTISONE 10 MG TAB PO SCH (21:11)
[2021-06-15] MEDS: HYDROcodone/APAP 5-325MG 1 EACH TAB PO PRN ×3 (01:38→11:45)
[2021-06-15 03:37] VITALS: PULSE 75; RESP 16
[2021-06-15] MEDS: SYMBICORT 160-4.5 MCG INHALER INHALATION SCH (07:14)
[2021-06-15] MEDS: ASPIRIN 81 MG PO SCH (07:27)
[2021-06-15] MEDS: MONTELUKAST 10 MG TAB PO SCH (07:27)
[2021-06-15] MEDS: PANTOPRAZOLE 40 MG TABLET PO SCH (07:28)
[2021-06-15] MEDS: buPROPion XL 150 MG TAB.ER.24H PO SCH (07:28)
[2021-06-15] MEDS: HYDROCORTISONE 10 MG TAB PO SCH (07:28)
[2021-06-15 07:59] VITALS: BP 142/65; TEMP 97.9
--- NOTE | 2021-06-15 11:21 | P.DS ---
Providers Date of admission: 06/14/21 12:57 Expected date of discharge: 06/15/21 Attending physician: Alitsair Ramirez Consults: 06/13/21 15:28 Consult Physician Routine Consulting Provider: Dania Hector Consult Reason/Comments: medical management Do you want consulting provider notified?: Yes Primary care physician: [facility] Course: This is a 60-year-old female who is admitted to [facility] on 06/04/21 after sustained a right ankle fracture dislocation. She underwent closed reduction and splint application in the emergency department. Patient followed up with Dr. Ramirez in the office for further management. Patient underwent an open reduction and internal fixation of the right trimalleolar ankle fracture on 06/13/[address] Ramirez. Patient was admitted to our service following the procedure, with a consult placed to internal medicine for bryan-operative medical management. The procedure was performed without complication or sequelae. The patient is doing fairly well postoperatively. Vital signs and labs are stable on postoperative day #2. Patient was examined bedside today. Patient states her pain is well-controlled this morning. She has been working with physical therapy and ambulating without issue. She is remaining non-weight bearing on the operative leg. Patient is tolerating her diet well. She is urinating without issue. Patient has not had a bowel movement post-operatively, although she denies abdominal pain. Patient is doing well and would like to return home today. She denies chest pain, shortness of breath, nausea, vomiting. Vital signs stable. On examination, the patient is sitting up in a bedside chair in no apparent distress. She is alert and orientated x3. On inspection of the right lower extremity, there is a clean, dry, intact bulky Whitt splint intact. The visible portion of the toes are warm and well perfused with brisk capillary refill. Patient is able to wiggle toes appropriately. There is no pain with passive [id number] of the toes. Patient is discharged home today in good condition, pending medical clearance. Patient will follow-up in the office in 2 weeks. Please see med rec for accurate list of discharge medication. Per Dr. Farris, patient was instructed to take 30mg PO hydrocortisone for 1 week post-operatively. Patient states she has this medication at home and does not need a prescription. Plan - Discharge Summary Discharge Rx Participant: No New Discharge Prescriptions: New Docusate [Colace] 100 mg PO BID 30 Days #60 cap Cholecalciferol [Vitamin D3 (25 Mcg = 1000 Iu)] 50 mcg PO DAILY #30 tab Aspirin 81 mg PO BID 30 Days #60 tab HYDROcodone/APAP 5-325MG [[place] 5-325] 1 - 2 tab PO Q6HR PRN 7 Days #40 tab PRN Reason: Pain No Action Pantoprazole Sodium [Protonix] 40 mg PO BID Montelukast [Singulair] 10 mg PO DAILY Hydrocortisone [Cortef] 15 mg PO DAILY buPROPion XL [Wellbutrin Xl] 150 mg PO DAILY Budesonide [Pulmicort] 0.25 mg INHALATION RT-BID PRN PRN Reason: Shortness Of Breath Atorvastatin [Lipitor] 10 mg PO HS Hydrocortisone [Cortef] 15 mg PO DAILY PRN PRN Reason: EXTRA STRESS Fluticasone/Salmeterol [Fluticasone-Salmeterol 232-14] 1 puff INHALATION RT- BID Cephalexin [Keflex] 500 mg PO Q6HR #40 cap Vilazodone HCl [Viibryd] 20 mg PO DAILY HYDROcodone/APAP 5-325MG [[place] 5-325] 1 tab PO Q6HR PRN 3 Days #8 tab PRN Reason: Pain Discharge Medication List Atorvastatin [Lipitor] 10 mg PO HS 01/25/16 [History] Budesonide [Pulmicort] 0.25 mg INHALATION RT-BID PRN 01/25/16 [History] Hydrocortisone [Cortef] 15 mg PO DAILY 01/25/16 [History] Montelukast [Singulair] 10 mg PO DAILY 01/25/16 [History] Pantoprazole Sodium [Protonix] 40 mg PO BID 01/25/16 [History] buPROPion XL [Wellbutrin Xl] 150 mg PO DAILY 01/25/16 [History] Fluticasone/Salmeterol [Fluticasone-Salmeterol 232-14] 1 puff INHALATION RT-BID 06/04/21 [History] HYDROcodone/APAP 5-325MG [[place] 5-325] 1 tab PO Q6HR PRN 3 Days #8 tab 06/04/21 [Rx] Hydrocortisone [Cortef] 15 mg PO DAILY PRN 06/04/21 [History] Cephalexin [Keflex] 500 mg PO Q6HR #40 cap 06/10/21 [Rx] Vilazodone HCl [Viibryd] 20 mg PO DAILY 06/12/21 [History] Aspirin 81 mg PO BID 30 Days #60 tab 06/15/21 [Rx] Cholecalciferol [Vitamin D3 (25 Mcg = 1000 Iu)] 50 mcg PO DAILY #30 tab 06/15/21 [Rx] Docusate [Colace] 100 mg PO BID 30 Days #60 cap 06/15/21 [Rx] HYDROcodone/APAP 5-325MG [[place] 5-325] 1 - 2 tab PO Q6HR PRN 7 Days #40 tab 06/15/21 [Rx] Follow up Appointment(s)/Referral(s): Shirlene Marques, PAC [PHYSICIAN TRANSFER CAR OPERATOR] - 2 Weeks Activity/Diet/Wound Care/Special Instructions: Keep splint clean, dry, intact. Non-weight bearing operative leg. Take pain medications as prescribed. Aspirin for blood clot prevention. Follow-up in the office in two weeks. Call the office with any questions or concerns, Discharge Disposition: HOME SELF-CARE
[2021-06-16] MEDS ORDERED: HYDROCORTISONE 10 MG TAB PO SCH (09:00)
== END 2021-06-15 12:18 | disposition home or self-care (01) ==
LOC: OR 10:38 → 4SSUR 16:03 → OR 06-14 12:57
PROVIDERS: ADMIT Orthopaedic Surgery; ATTEND Orthopaedic Surgery
DX: S82.851A Displaced trimalleolar fracture of right lower leg, initial encounter for closed fracture (principal); W19.XXXA Unspecified fall, initial encounter; E27.40 Unspecified adrenocortical insufficiency; E78.5 Hyperlipidemia, unspecified; F39 Unspecified mood [affective] disorder; J45.909 Unspecified asthma, uncomplicated; K21.9 Gastro-esophageal reflux disease without esophagitis; F32.9 Major depressive disorder, single episode, unspecified; Z79.52 Long term (current) use of systemic steroids; Z79.899 Other long term (current) drug therapy; Z88.0 Allergy status to penicillin; Z88.6 Allergy status to analgesic agent; Z88.2 Allergy status to sulfonamides; Z87.19 Personal history of other diseases of the digestive system; Z83.3 Family history of diabetes mellitus
CPT/HCPCS: 27823; 94640 ×3; 97161; 64447; 64445; 76942; 85025; 82306; 73600; G0378 ×2; C1713; J2250; J1720 ×2; J0690 ×2; J2405 ×2; J2001; J3010; J2795; J0330; J2704; J1170 ×2

== ENCOUNTER → 2021-11-28 | Outpatient (CLI) | payer OTHER ==
--- NOTE | 2021-11-28 16:39 | CT ---
EXAMINATION TYPE: CT heart w calcium score DATE OF EXAM: 11/28/2021 COMPARISON: HISTORY: Screening for cardiovascular disorder. 213.9 CT DLP: 67.20 mGycm Automated exposure control for dose reduction was used. CT CALCIUM SCORING Coronary calcium is a marker for plaque (fatty deposits) in a blood vessel or atherosclerosis (harden ing of the arteries). The presence and amount of calcium detected in a coronary artery by the CT sca n, indicates the presence and amount of atherosclerotic plaque. These calcium deposits appear years before the development of heart disease symptoms such as chest pain and shortness of breath. A calcium score is computed for each of the coronary arteries based upon the volume and density of th e calcium deposits. This can be referred to as your calcified plaque burden. It does not correspond directly to the percentage of narrowing in the artery but does correlate with the severity of the un derlying coronary atherosclerosis. PROCEDURE TECHNIQUE - Prospective Gating was used. Slice thickness: 3mm. Density threshold (HU): 130, Pixel threshold: 3, Algorithm: discrete. RESULTS Region: LM Calcium Score ([place]): 0 Volume (mm3): 0 Mass (g): 0 Region: RCA Calcium Score ([place]): 12.51 Volume (mm3): 18.77 Mass (g): 6.26 Region: LAD Calcium Score ([place]): 2.21 Volume (mm3): 6.63 Mass (g): 2.21 Region: CX Calcium Score ([place]): 0 Volume (mm3): 0 Mass (g): 0 Region: PDA Calcium Score ([place]): 0 Volume (mm3): 0 Mass (g): 0 Total: Calcium Score ([place]): 14.72 Volume (mm3): 25.4 Mass (g): 8.47 TOTAL CALCIUM SCORE: 14.72 IMPRESSION: Calcium Score: 14.7 Implication: Mild atherosclerotic plaque Risk of Coronary Artery Disease: Mild to minimal risk of coronary disease Hiatal hernia with partial intrathoracic stomach noted incidentally.[id number] CALCIUM SCORE IMPLICATION RISK OF C ORONARY ARTERY DISEASE 0 No identifiable plaque Very low, generally less than 5% 1-10 Minimal identifiable plaque Very unlikely, less than 10% 11-100 Definite, at least mild atherosclerotic plaque Mild or m inimal coronary narrowings likely 101-400 Definite, at least moderate atherosclerotic plaque Mild coronary ar angie disease highly likely, significant narrowing possible 401 or Higher Extensive atherosclerotic plaque High lik elihood of at least one significant coronary narrowing
== END | disposition home or self-care (01) ==
LOC: RADCTMAIN 14:02
PROVIDERS: ATTEND Family Medicine
DX: I70.90 Unspecified atherosclerosis (principal)
CPT/HCPCS: 75571

== ENCOUNTER → 2021-12-07 | Outpatient (CLI) | payer OTHER ==
--- NOTE | 2021-12-07 12:39 | US ---
EXAMINATION TYPE: US kidneys/renal and bladder DATE OF EXAM: 12/07/2021 COMPARISON: US abdomen July 22, 2016 CLINICAL HISTORY: N17.9 ACUTE KIDNEY FAILURE. Acute renal failure. EXAM MEASUREMENTS: Right Kidney: 10.8 x 4.2 x 3.3 cm Left Kidney: 10.6 x 4.6 x 3.4 cm Right Kidney: Renal pelvis appears slightly dilated. Left Kidney: Renal pelvis appears slightly dilated. Bladder: Appears anechoic. Bilateral Jets seen: Yes When scanning right kidney adjacent liver is heterogeneously hyperechoic. No calyceal dilatation to s uggest hydronephrosis on images saved. IMPRESSION: No hydronephrosis is identified bilaterally.
== END | disposition home or self-care (01) ==
LOC: RADUSWWP 12:04
PROVIDERS: ATTEND Family Medicine
DX: N17.9 Acute kidney failure, unspecified (principal)
CPT/HCPCS: 76770

== ENCOUNTER → 2021-12-26 | Outpatient (CLI) | payer OTHER ==
--- NOTE | 2021-12-28 10:41 | MM ---
Reason for exam: screening (asymptomatic). Last mammogram was performed 1 year and 6 months ago. History: Patient is postmenopausal. US discontinued breast bx RT of the right breast, January 11, 2019. Physical Findings: A clinical breast exam by your physician is recommended on an annual basis and results should be correlated with mammographic findings. MG 3D Screening Mammo W/Cad Bilateral CC and MLO view(s) were taken. Technologist: Mirna Sol, RT (R)(M) Prior study comparison: July 03, 2020, bilateral MG 3d diag mammo w/cad [facility]IL[facility]. December 25, 2018, right breast US breast workup limited RT. December 22, 2018, bilateral MG 3d screening mammo w/cad. March 05, 2017, bilateral MG screening mammo w CAD. There are scattered fibroglandular densities. No significant changes when compared with prior studies. ASSESSMENT: Negative, BI-RAD 1 RECOMMENDATION: Routine screening mammogram of both breasts in 1 year.
== END | disposition home or self-care (01) ==
LOC: RADMAMWWP 12:18
PROVIDERS: ATTEND Family Medicine
DX: Z12.31 Encounter for screening mammogram for malignant neoplasm of breast (principal); Z78.0 Asymptomatic menopausal state
CPT/HCPCS: 77063; 77067

== ENCOUNTER → 2022-02-18 | Outpatient (CLI) | payer OTHER ==
[2022-02-18 14:29] LABS: Basophils # (A) 0.15 X 10*3/uL (0.00-0.10); Basophils % (A) 1.5 %; Eosinophils # (A) 0.28 X 10*3/uL (0.04-0.35); Eosinophils % (A) 2.8 %; HCT 47.8 % (37.2-46.3); HGB 14.7 g/dL (12.0-15.0); Immature Grans, Automated 0.5 %; Lymphocytes # (A) 2.28 X 10*3/uL (0.90-5.00); Lymphocytes % (A) 22.5 %; MCH 25.8 pg (27.0-32.0); MCHC 30.8 g/dL (32.0-37.0); Mean Platelet Volume 9.7 fL (9.5-12.2); Monocytes # (A) 0.95 X 10*3/uL (0.20-1.00); Monocytes % (A) 9.4 %; NRBC Per 100 WBC 0 /100 WBCS (0.0-0.0); Neutrophils # (A) 6.42 X 10*3/uL (1.80-7.70); Neutrophils % (A) 63.3 %; Platelet Count 549 X 10*3/uL (140-440); RBC 5.69 X 10*6/uL (4.10-5.20); RDW 14.6 % (11.5-14.5); WBC 10.13 X 10*3/uL (4.50-10.00)
[2022-02-18 15:52] LABS: Creatine Kinase 38 U/L (26-186); Iron 103 ug/dL (50-170)
[2022-02-18 16:25] LABS: % Iron Saturation 34.54 (12.00-45.00); ALT 65 U/L (8-44); AST 47 U/L (13-35); African American GFR (CKD) 52.5 (60.0-200.0); Albumin 4.6 g/dL (3.8-4.9); Albumin/Globulin Ratio 1.63 (1.60-3.17); Alkaline Phosphatase 118 U/L (41-126); BUN/Creat Ratio 18.02 Ratio (12.00-20.00); Bilirubin, Conjugated <0.20 mg/dL (0.20-0.40); Blood Urea Nitrogen 22.7 mg/dL (9.0-27.0); Calcium 10.2 mg/dL (8.7-10.3); Carbon Dioxide 25.2 mmol/L (20.0-27.5); Chloride 100 mmol/L (96-109); Chol/HDL Ratio 3.24 Ratio; Globulin 2.8 g/dL (1.6-3.3); Glucose 97 mg/dL (70-110); LDL Cholesterol,Calculated 131.7 mg/dL (0.0-131.0); Non-African American GFR(CKD) 45.3 (60.0-200.0); Potassium 4.7 mmol/L (3.5-5.5); Sodium 138 mmol/L (135-145); Total Iron Binding Capacity 298 ug/dL (228-460); Total Protein 7.5 g/dL (6.2-8.2)
== END | disposition home or self-care (01) ==
LOC: LABWHC1 09:16
PROVIDERS: ATTEND Nuclear Medicine Nuclear Cardiology
DX: E78.2 Mixed hyperlipidemia (principal); D50.9 Iron deficiency anemia, unspecified
CPT/HCPCS: 36415; 80048; 80061; 80076; 82550; 82607; 82746; 83036; 83540; 83550; 85025

== ENCOUNTER → 2022-12-21 | Outpatient (CLI) | payer OTHER ==
[2022-12-21 23:28] LABS: Basophils # (A) 0.18 X 10*3/uL (0.00-0.10); Basophils % (A) 2.4 %; Eosinophils # (A) 0.24 X 10*3/uL (0.04-0.35); Eosinophils % (A) 3.2 %; HCT 44.5 % (37.2-46.3); HGB 13.9 g/dL (12.0-15.0); Immature Grans, Automated 0.4 %; Lymphocytes # (A) 2.07 X 10*3/uL (0.90-5.00); Lymphocytes % (A) 27.3 %; MCH 26.6 pg (27.0-32.0); MCHC 31.2 g/dL (32.0-37.0); MCV 85.2 fL (80.0-97.0); Mean Platelet Volume 11.4 fL (9.5-12.2); Monocytes % (A) 9.2 %; NRBC Per 100 WBC 0 /100 WBCS (0.0-0.0); Neutrophils # (A) 4.37 X 10*3/uL (1.80-7.70); Neutrophils % (A) 57.5 %; Platelet Count 375 X 10*3/uL (140-440); RBC 5.22 X 10*6/uL (4.10-5.20); RBC Morphology NORMAL; RDW 13.9 % (11.5-14.5); WBC 7.59 X 10*3/uL (4.50-10.00)
[2022-12-21 23:29] LABS: % Iron Saturation 22.85 (12.00-45.00); ALT 24 U/L (8-44); AST 20 U/L (13-35); African American GFR (CKD) 55.9 (60.0-200.0); Albumin 4.3 g/dL (3.8-4.9); Albumin/Globulin Ratio 1.79 (1.60-3.17); Alkaline Phosphatase 91 U/L (41-126); BUN/Creat Ratio 14.87 Ratio (12.00-20.00); Blood Urea Nitrogen 17.7 mg/dL (9.0-27.0); Calcium 9.6 mg/dL (8.7-10.3); Carbon Dioxide 22.3 mmol/L (20.0-27.5); Chloride 104 mmol/L (96-109); Chol/HDL Ratio 2.53 Ratio; Globulin 2.4 g/dL (1.6-3.3); Glucose 93 mg/dL (70-110); Iron 68 ug/dL (50-170); LDL Cholesterol,Calculated 82.5 mg/dL (0.0-131.0); Non-African American GFR(CKD) 48.2 (60.0-200.0); Potassium 3.7 mmol/L (3.5-5.5); Sodium 141 mmol/L (135-145); Total Iron Binding Capacity 295 ug/dL (228-460); Total Protein 6.8 g/dL (6.2-8.2)
== END | disposition home or self-care (01) ==
LOC: LABWHC1 10:24
PROVIDERS: ATTEND Family Medicine
DX: Z13.1 Encounter for screening for diabetes mellitus (principal); E27.9 Disorder of adrenal gland, unspecified; N18.1 Chronic kidney disease, stage 1; D50.9 Iron deficiency anemia, unspecified; E78.5 Hyperlipidemia, unspecified
CPT/HCPCS: 36415; 80053; 80061; 82024; 82533; 82607; 82627; 83036; 83540; 83550; 83970; 84439; 84443; 85025

== ENCOUNTER → 2023-01-23 | Outpatient (CLI) | payer OTHER ==
--- NOTE | 2023-01-24 19:19 | MM ---
Reason for Exam: Screening (asymptomatic). Last mammogram was performed 1 year(s) and 1 month(s) ago. Patient History: Menarche at age 11. First Full-Term at age 19. Postmenopausal. 01/11/2019, US discontinued breast bx RT on the right side. Risk Values: Zoe 5 year model risk: 1.4%. NCI Lifetime model risk: 5.8%. Prior Study Comparison: 12/22/2018 Bilateral Screening Mammogram, [facility]. 07/03/2020 Bilateral Diagnostic Mammogram, [facility]. 12/26/2021 Bilateral Screening Mammogram, [facility]. Tissue Density: There are scattered fibroglandular densities. Findings: Analyzed By CAD. Areas of asymmetric density are unchanged. There is no suspicious group of microcalcifications or new suspicious mass in either breast. Overall Assessment: Benign, BI-RAD 2 Management: Screening Mammogram of both breasts in 1 year. . Patient should continue monthly self-breast exams. A clinical breast exam by your physician is recommended on an annual basis. This exam should not preclude additional follow-up of suspicious palpable abnormalities. Note on Zoe scores and lifetime risk: 1. A Zoe score greater than 3% is considered moderate risk. If this is the case, consider specialist referral to assess eligibility for a risk reducing agent. 2. If overall lifetime risk for the development of breast cancer is 20% or higher, the patient may qualify for future screening with alternating mammogram and breast MRI. Electronically signed and approved by: Seven Medel M.D. Radiologist
== END | disposition home or self-care (01) ==
LOC: RADMAMWWP 13:05
PROVIDERS: ATTEND Family Medicine
DX: Z12.31 Encounter for screening mammogram for malignant neoplasm of breast (principal); Z78.0 Asymptomatic menopausal state; Z98.890 Other specified postprocedural states
CPT/HCPCS: 77063; 77067

== ENCOUNTER → 2023-02-05 | Outpatient (CLI) | payer OTHER ==
[2023-02-05 11:27] LABS: African American GFR (CKD) 60.8 (60.0-200.0); Albumin/Globulin Ratio 1.97 (1.60-3.17); Anion Gap 11.3 mmol/L (10.00-18.00); BUN/Creat Ratio 15.14 Ratio (12.00-20.00); Blood Urea Nitrogen 16.8 mg/dL (9.0-27.0); Calcium 9.6 mg/dL (8.7-10.3); Carbon Dioxide 28.3 mmol/L (20.0-27.5); Globulin 2.1 g/dL (1.6-3.3); Non-African American GFR(CKD) 52.4 (60.0-200.0); Potassium 3.5 mmol/L (3.5-5.5); T4, Free (Free Thyroxine) 1.56 ng/dL (0.800-1.800); Total Bilirubin 0.5 mg/dL (0.30-1.20); Total Protein 6.1 g/dL (6.2-8.2)
== END | disposition home or self-care (01) ==
LOC: LABWHC1 07:10
PROVIDERS: ATTEND Internal Medicine
DX: E55.9 Vitamin D deficiency, unspecified (principal); E04.2 Nontoxic multinodular goiter
CPT/HCPCS: 36415; 80053; 82306; 84439; 84443

== ENCOUNTER → 2023-04-08 | Outpatient (CLI) | payer OTHER ==
[~2023-04-08] MED LIST changes: -LIDOCAINE 1% (10MG/ML) FOR IV START INTRADERMA PRN; -ONDANSETRON 4 MG/2 ML VIAL IVP ONE; -SCOPOLAMINE 1.5MG/72HR PATCH TRANSDERM ONE; +SODIUM CHLORIDE 0.9% 500 ML 500 ML in EMPTY BAG 1 BAG IV PRN; +ZOLEDRONIC ACID 5 MG in SODIUM CHLORIDE 0.9% 100 ML IV NR
[2023-04-08 12:32] VITALS: BP 136/74; PULSE 82; RESP 16; TEMP 97.9
== END ==
LOC: PROCWHC3 12:15
PROVIDERS: ATTEND Internal Medicine
DX: M81.0 Age-related osteoporosis without current pathological fracture (principal)
CPT/HCPCS: 96365; J3489

== ENCOUNTER → 2023-11-25 | Outpatient (CLI) | payer OTHER ==
[2023-11-26 13:11] LABS: Crab IgE <0.10 kU/L (<0.10); Crab IgE Class CLASS 0
[2023-11-26 13:12] LABS: Beef IgE <0.10 kU/L (<0.10); Beef IgE Class CLASS 0; Lettuce IgE Class CLASS 0; Yeast Bakers/Brew IgE <0.10 kU/L (<0.10); Yeast Bakers/Brew IgE Class CLASS 0
[2023-11-26 13:13] LABS: Apple IgE Class CLASS 0; Onion IgE <0.10 kU/L (<0.10); Onion IgE Class CLASS 0
[2023-11-26 13:14] LABS: Chicken IgE Class CLASS 0; Egg Yolk IgE Class CLASS 0; Lobster IgE <0.10 kU/L (<0.10); Lobster IgE Class CLASS 0; Oat IgE Class CLASS 0
[2023-11-26 13:15] LABS: Celery IgE <0.10 kU/L (<0.10); Celery IgE Class CLASS 0; Chocolate IgE Class CLASS 0; Gluten IgE Class CLASS 0
[2023-11-26 13:16] LABS: Avocado Class CLASS 0; Banana IgE Class CLASS 0; Coffee IgE <0.10 kU/L (<0.10); Coffee IgE Class CLASS 0; Hazelnut IgE <0.10 kU/L (<0.10); Hazelnut IgE Class CLASS 0; Kiwi IgE <0.10 kU/L (<0.10); Kiwi IgE Class CLASS 0; Latex IgE Class CLASS 0
[2023-11-26 16:21] LABS: Egg White IgE <0.10 kU/L; Peanut IgE <0.10 kU/L; Shrimp IgE <0.10 kU/L; Soybean IgE <0.10 kU/L; Walnut IgE (Food) <0.10 kU/L
== END | disposition home or self-care (01) ==
LOC: LABWHC1 15:35
PROVIDERS: ATTEND Otolaryngology
DX: J30.89 Other allergic rhinitis (principal)
CPT/HCPCS: 36415; 86001; 86003

== ENCOUNTER → 2023-11-27 | Outpatient (CLI) | payer OTHER ==
[2023-11-28 12:53] LABS: Pork IgE Class CLASS 0; Salmon IgE <0.10 kU/L (<0.10); Salmon IgE Class CLASS 0
[2023-11-28 12:54] LABS: Potato IgE <0.10 kU/L (<0.10); Potato IgE Class CLASS 0; Tea IgE <0.10 kU/L (<0.10); Tea IgE Class CLASS 0
== END | disposition home or self-care (01) ==
LOC: LABWHC1 11:27
PROVIDERS: ATTEND Otolaryngology
DX: L50.0 Allergic urticaria (principal); J30.89 Other allergic rhinitis; B44.89 Other forms of aspergillosis
CPT/HCPCS: 36415; 86003

== ENCOUNTER 2024-01-01 08:42 | Observation (INO) | payer OTHER ==
--- NOTE | 2024-01-01 09:02 | ED ---
General Adult HPI - General Chief complaint: Chest Pain Stated complaint: Chest pain Time Seen by Provider: 01/01/24 08:50 Source: patient, EMS, RN notes reviewed, old records reviewed Mode of arrival: EMS Limitations: no limitations - History of Present Illness Initial comments: This is a 63-year-old female who presents to the emergency department comp laining of chest pain. Patient states that started yesterday and has started in the anterior aspect of the chest it was a pressure and heaviness sensation patient states that radiated around to her back. Patient denied any shortness of breath difficulty breathing or nausea. Patient denied any diaphoretic episode. Patient states the pain came back today and it does not radiate anywhere but it is in the center of her chest and it is a very significant heaviness. Patient states she took 2 nitroglycerin with the ambulance and it reduced her pain to a very minimal discomfort at this point. Patient denies any difficulty breathing or shortness of breath. Patient has any recent fever chills or cough. Patient states she does have high cholesterol and strong family history of heart disease. - Related Data Home Medications Medication Instructions Recorded Confirmed Atorvastatin [Lipitor] 10 mg PO HS 01/25/16 01/01/24 Hydrocortisone [Cortef] 15 mg PO DAILY 01/25/16 01/01/24 Montelukast [Singulair] 10 mg PO HS 01/25/16 01/01/24 Pantoprazole Sodium [Protonix] 40 mg PO BID 01/25/16 01/01/24 buPROPion XL [Wellbutrin Xl] 150 mg PO DAILY 01/25/16 01/01/24 Fluticasone Propion/Salmeterol 1 puff INHALATION RT-BID 06/04/21 01/01/24 [Fluticasone-Salmeterol 232-14] busPIRone HCL 10 mg PO BID 04/08/23 01/01/24 Budesonide [Pulmicort] 0.5 mg INHALATION RT-BID PRN 01/01/24 01/01/24 Fluticasone Nasal [place] [Flonase 1 spray EA NOSTRIL HS 01/01/24 01/01/24 Nasal [place]] Ketorolac 0.5% Ophth Soln [Acular 1 drops LEFT EYE QID 01/01/24 01/01/24 0.5%] Vilazodone HCl [Viibryd] 40 mg PO DAILY 01/01/24 01/01/24 Previous Rx's Medication Instructions Recorded Cholecalciferol [Vitamin D3 (25 50 mcg PO DAILY #30 tab 06/15/21 Mcg = 1000 Iu)] Allergies Allergy/AdvReac Type Severity Reaction Status Date / Time ampicillin Allergy Rash/Hives Verified 01/01/24 09:59 Sulfa (Sulfonamide Allergy Rash/Hives Verified 01/01/24 09:59 Antibiotics) aspirin AdvReac Wheezing Verified 01/01/24 09:59 Review of Systems ROS Statement: Those systems with pertinent positive or pertinent negative responses have been documented in the HPI. ROS Other: All systems not noted in ROS Statement are negative. Past Medical History Past Medical History: Asthma, GERD/Reflux, Hyperlipidemia Additional Past Medical History / Comment(s): adrenal insuff. HX OF POLYP. FX RT ANKLE 06/04/21. RT ANKLE ORIF 06/13/21. osteopenia History of Any Multi-Drug Resistant Organisms: None Reported Past Surgical History: Tubal Ligation Additional Past Surgical History / Comment(s): COLONOSCOPY Past Anesthesia/Blood Transfusion Reactions: No Reported Reaction Past Psychological History: Depression Smoking Status: Never smoker Past Alcohol Use History: Rare Past Drug Use History: None Reported - Past Family History Mother Family Medical History: No Reported History General Exam - General Exam Comments Initial Comments: GENERAL: Patient is well-developed and well-nourished. Patient is nontoxic and well- hydrated and is in mild distress. ENT: Neck is soft and supple. No significant lymphadenopathy is noted. Oropharynx is clear. Moist mucous membranes. Neck has full range of motion without eliciting any pain. EYES: The sclera were anicteric and conjunctiva were pink and moist. Extraocular movements were intact and pupils were equal round and reactive to light. Eyelids were unremarkable. PULMONARY: Unlabored respirations. Good breath sounds bilaterally. No audible rales rhonchi or wheezing was noted. CARDIOVASCULAR: There is a regular rate and rhythm without any murmurs gallops or rubs. ABDOMEN: Soft and nontender with normal bowel sounds. SKIN: Skin is clear with no lesions or rashes and otherwise unremarkable. NEUROLOGIC: Patient is alert and oriented x3. Cranial nerves II through XII are grossly intact. Motor and sensory are also intact. Normal speech, volume and content. Symmetrical smile. MUSCULOSKELETAL: Normal extremities with adequate strength and full range of motion. LYMPHATICS: No significant lymphadenopathy is noted PSYCHIATRIC: Normal psychiatric evaluation. Limitations: no limitations Course Vital Signs 01/01/24 01/01/24 08:46 10:23 Temperature 98.5 F Pulse Rate 81 79 Respiratory 16 18 Rate Blood Pressure 130/66 140/70 O2 Sat by Pulse 95 96 Oximetry Medical Decision Making - Medical Decision Making EKG is interpreted by myself. EKG shows a sinus rhythm at 80 bpm AL interval 148 QRS 72 QT interval 372 QTc is 408. Patient's EKG shows no ST segment ovation or depression Was pt. sent in by a medical professional or institution (, PA, ALUM PLANT SUPERVISOR, urgent care, hospital, or usp...) When possible be specific @ -No Did you speak to anyone other than the patient for history (EMS, parent, family, police, friend...)? What history was obtained from this source @ -No Did you review nursing and triage notes (agree or disagree)? Why? @ -I reviewed and agree with nursing and triage notes Were old charts reviewed (outside hosp., previous admission, EMS record, old EKG, old radiological studies, urgent care reports/EKG's, usp records)? Report findings @ -I compared this to 6 weeks with prior x-rays and showed no acute normality. I also checked patient's prior lab work with against today's lab work and saw no acute abnormality Differential Diagnosis (chest pain, altered mental status, abdominal pain women, abdominal pain men, vaginal bleeding, weakness, fever, dyspnea, syncope, headache, dizziness, GI bleed, back pain, seizure, CVA, palpatations, mental health, musculoskeletal)? @ -Differential Chest Pain: Stable Angina, Unstable Angina, STEMI, NSTEMI Aortic Dissection, Pneumothorax, Musculoskeletal, Esophageal Spasm GERD, Cholecystitis, Pancreatitis, Zoster, this is not meant to be an all-inclusive list. EKG interpreted by me (3pts min.). @ -As above X-rays interpreted by me (1pt min.). @ -Chest x-ray shows no acute abnormality CT interpreted by me (1pt min.). @ -None done U/S interpreted by me (1pt. min.). @ -None done What testing was considered but not performed or refused? (CT, X-rays, U/S, labs)? Why? @ -None What meds were considered but not given or refused? Why? @ -None Did you discuss the management of the patient with other professionals (professionals i.e. , PA, ALUM PLANT SUPERVISOR, lab, RT, psych nurse, social service liaison, package center supervisor, teacher, chairman and chief executive officer, case checker)? Give summary @ -I spoke with sound physicians they agreed to admit the patient admit the patient with admitting orders Was smoking cessation discussed for >3mins.? @ -No Was critical care preformed (if so, how long)? @ -No Were there social determinants of health that impacted care today? How? (Homelessness, low income, unemployed, alcoholism, drug addiction, transportation, low edu. Level, literacy, decrease access to med. care, shelter, rehab)? @ -No Was there de-escalation of care discussed even if they declined (Discuss DNR or withdrawal of care, Hospice)? DNR status @ -No What co-morbidities impacted this encounter? (DM, HTN, Smoking, COPD, CAD, Cancer, CVA, ARF, Chemo, Hep., AIDS, mental health diagnosis, sleep apnea, morbid obesity)? @ -None Was patient admitted / discharged? Hospital course, mention meds given and route, prescriptions, significant lab abnormalities, going to OR and other pertinent info. @ -Patient had aspirin in the ambulance and she was having Nitropaste in the emergency department. Patient was still experiencing some slight pain but it was much improved after nitroglycerin was given in the ambulance. Patient's lab work showed no acute normality. I admitted the patient I wrote admitting orders I spoke with sound physicians and they were in agreement. I consult to cardiology. Undiagnosed new problem with uncertain prognosis? @ -No Drug Therapy requiring intensive monitoring for toxicity (Heparin, Nitro, Insulin, Cardizem)? @ -No Were any procedures done? @ -No Diagnosis/symptom? @ -Chest pain Acute, or Chronic, or Acute on Chronic? @ -Acute Uncomplicated (without systemic symptoms) or Complicated (systemic symptoms)? @ -Complicated Side effects of treatment? @ -None Exacerbation, Progression, or Severe Exacerbation? @ -No Poses a threat to life or bodily function? How? (Chest pain, USA, NC, pneumonia, PE, COPD, DKA, ARF, appy, cholecystitis, CVA, Diverticulitis, Homicidal, Suicidal, threat to staff... and all critical care pts) @ -Yes this could lead to an NC and endorgan dysfunction - Lab Data Result diagrams: 01/01/24 09:01 01/01/24 09:01 Lab Results 01/01/24 01/01/24 01/01/24 Range/Units 09:01 09:01 09:01 WBC 8.9 (3.8-10.6) k/uL RBC 4.66 (3.80-5.40) m/uL Hgb 12.6 (11.4-16.0) gm/dL Hct 39.6 (34.0-46.0) % MCV 85.0 (80.0-100.0) fL MCH 27.0 (25.0-35.0) pg MCHC 31.8 (31.0-37.0) g/dL RDW 14.0 (11.5-15.5) % Plt Count 427 (150-450) k/uL MPV 7.7 Neutrophils % 54 % Lymphocytes % 32 % Monocytes % 6 % Eosinophils % 5 % Basophils % 2 % Neutrophils # 4.7 (1.3-7.7) k/uL Lymphocytes # 2.8 (1.0-4.8) k/uL Monocytes # 0.5 (0-1.0) k/uL Eosinophils # 0.4 (0-0.7) k/uL Basophils # 0.2 (0-0.2) k/uL PT 10.1 (10.0-12.5) sec INR 0.9 (<1.2) APTT 23.2 (22.0-30.0) sec Sodium 138 (137-145) mmol/L Potassium 4.2 (3.5-5.1) mmol/L Chloride 107 (98-107) mmol/L Carbon Dioxide 29 (22-30) mmol/L Anion Gap 2 mmol/L BUN 21 H (7-17) mg/dL Creatinine 1.30 H (0.52-1.04) mg/dL Est GFR (CKD-EPI)AfAm 50 (>60 ml/min/1.73 sqM) Est GFR (CKD-EPI)NonAf 43 (>60 ml/min/1.73 sqM) Glucose 103 H (74-99) mg/dL Calcium 8.7 (8.4-10.2) mg/dL Magnesium 2.2 (1.6-2.3) mg/dL Total Bilirubin 0.5 (0.2-1.3) mg/dL AST 36 (14-36) U/L ALT 55 H (4-34) U/L Alkaline Phosphatase 89 (38-126) U/L Troponin I (0.000-0.034) ng/mL Total Protein 6.3 (6.3-8.2) g/dL Albumin 3.6 (3.5-5.0) g/dL 01/01/24 Range/Units 09:01 WBC (3.8-10.6) k/uL RBC (3.80-5.40) m/uL Hgb (11.4-16.0) gm/dL Hct (34.0-46.0) % MCV (80.0-100.0) fL MCH (25.0-35.0) pg MCHC (31.0-37.0) g/dL RDW (11.5-15.5) % Plt Count (150-450) k/uL MPV Neutrophils % % Lymphocytes % % Monocytes % % Eosinophils % % Basophils % % Neutrophils # (1.3-7.7) k/uL Lymphocytes # (1.0-4.8) k/uL Monocytes # (0-1.0) k/uL Eosinophils # (0-0.7) k/uL Basophils # (0-0.2) k/uL PT (10.0-12.5) sec INR (<1.2) APTT (22.0-30.0) sec Sodium (137-145) mmol/L Potassium (3.5-5.1) mmol/L Chloride (98-107) mmol/L Carbon Dioxide (22-30) mmol/L Anion Gap mmol/L BUN (7-17) mg/dL Creatinine (0.52-1.04) mg/dL Est GFR (CKD-EPI)AfAm (>60 ml/min/1.73 sqM) Est GFR (CKD-EPI)NonAf (>60 ml/min/1.73 sqM) Glucose (74-99) mg/dL Calcium (8.4-10.2) mg/dL Magnesium (1.6-2.3) mg/dL Total Bilirubin (0.2-1.3) mg/dL AST (14-36) U/L ALT (4-34) U/L Alkaline Phosphatase (38-126) U/L Troponin I <0.012 (0.000-0.034) ng/mL Total Protein (6.3-8.2) g/dL Albumin (3.5-5.0) g/dL Disposition Clinical Impression: Chest pain Disposition: ADMITTED IP TO THIS HOSP Referrals: Jorge Alberto Saleh MD [Primary Care Provider] - 1-2 days Time of Disposition: 11:20
[2024-01-01] MEDS: NITROGLYCERIN OINT 1 INCH/GM PACKET TOPICAL STA (09:09)
[2024-01-01 09:13] LABS: Basophils # (A) 0.2 k/uL (0-0.2); Basophils % (A) 2 %; Eosinophils # (A) 0.4 k/uL (0-0.7); Eosinophils % (A) 5 %; HCT 39.6 % (34.0-46.0); HGB 12.6 gm/dL (11.4-16.0); Lymphocytes # (A) 2.8 k/uL (1.0-4.8); Lymphocytes % (A) 32 %; MCHC 31.8 g/dL (31.0-37.0); Mean Platelet Volume 7.7; Monocytes # (A) 0.5 k/uL (0-1.0); Monocytes % (A) 6 %; Neutrophils # (A) 4.7 k/uL (1.3-7.7); Neutrophils % (A) 54 %; Platelet Count 427 k/uL (150-450); RBC 4.66 m/uL (3.80-5.40); WBC 8.9 k/uL (3.8-10.6)
[2024-01-01 09:26] LABS: INR 0.9 (<1.2); Partial Thromboplastin Time 23.2 sec (22.0-30.0); Prothrombin Time 10.1 sec (10.0-12.5)
[2024-01-01 09:49] LABS: ALT 55 U/L (4-34); AST 36 U/L (14-36); African American GFR (CKD) 50 (>60 ml/min/1.73 sqM); Albumin 3.6 g/dL (3.5-5.0); Alkaline Phosphatase 89 U/L (38-126); Anion Gap 2 mmol/L; Blood Urea Nitrogen 21 mg/dL (7-17); Calcium 8.7 mg/dL (8.4-10.2); Carbon Dioxide 29 mmol/L (22-30); Chloride 107 mmol/L (98-107); Glucose 103 mg/dL (74-99); Magnesium 2.2 mg/dL (1.6-2.3); Non-African American GFR(CKD) 43 (>60 ml/min/1.73 sqM); Potassium 4.2 mmol/L (3.5-5.1); Sodium 138 mmol/L (137-145); Total Bilirubin 0.5 mg/dL (0.2-1.3); Total Protein 6.3 g/dL (6.3-8.2)
--- NOTE | 2024-01-01 11:16 | XR ---
EXAMINATION TYPE: XR chest 2V DATE OF EXAM: 01/01/2024 COMPARISON: 01/18/2021 HISTORY: 63-year-old female with chest pain TECHNIQUE: PA and lateral views FINDINGS: The cardiomediastinal silhouette, aorta, and pulmonary vasculature are within normal limits. Mild int erstitial prominence is unchanged. Otherwise, lungs and pleural spaces are clear. IMPRESSION: Chronic changes. No acute cardiopulmonary process.
[2024-01-01] MEDS ORDERED: NITROGLYCERIN SL TABS 0.4 MG TAB SUBLINGUAL PRN (11:21)
[2024-01-01] MEDS: NITROGLYCERIN OINT 1 INCH/GM PACKET TOPICAL SCH (11:33)
--- NOTE | 2024-01-01 12:58 | P.HPIM ---
History of Present Illness H&P Date: 01/01/24 63 year old F with PMH of HLD, Asthma, Anxiety, adrenal insufficiency presents to the ED. She reports chest pain that started yesterday around 8AM. Yesterday, the pain was intermittent, nagging and aching in nature wrapping around the left side of her chest to the back, occuring about 3-4 times throughout the day. No inciting event. No rash. Not aggravated with deep inspiration and movement. Nonexertional. This morning the chest pain work her up around 7AM and was much more intense. She reports her father having a IL in his 40s. Non smoker. Denies shortness of breath, N/V or diaphoresis. She received 2 nitro[address] tabs on her way to the hospital which alleviated her pain. In the ED she underwent extensive evaluation. BP 130/66, HR 81, T 98.5F, RR 16, 95% on RA. CBC, Coag panel, CMP significant for BUN 21, Cr 1.3, glu 103, ALT 55. Troponin < 0.012. EKG sinus rhythm with no ST elevation or depression.CXR chronic changes. Patient is admitted for chest pain, rule out ACS with Cardiology consultation. General: non toxic, no distress, appears at stated age Derm: warm, dry Head: atraumatic, normocephalic, symmetric Eyes: EOMI, no lid lag, anicteric sclera Mouth: no lip lesion, mucus membranes moist Cardiovascular: S1S2 irregular, no murmur Lungs: CTA bilateral, no rhonchi, no rales , no accessory muscle use Ext: no gross muscle atrophy, no edema, no contractures Neuro: no focal neuro deficits Psych: Alert, oriented, appropriate affect Based on my assessment of this patient, this patient meets a high complexity level of care. Patient has an acute diagnosis of chest pain that poses a threat to life or bodily function. Chest pain: Trend Trop/EKG to rule out ACS. ASA 81 mg PO QD. Nitro ointment TOP Q6H. Telemetry monitoring. Echo ordered. Cardiology consult. Chronic kidney disease: Appears at baseline when compared to previous labs. Asthma: Stable not in acute exacerbation. Anxiety: Buspar 10 mg PO BID. Bupropion 150 mg PO QD. Adrenal insufficiency: Hydrocortisone 15 mg PO QD. CODE STATUS: FULL CODE. DVT Prophylaxis: Lovenox GI Prophylaxis: Protonix Designated medical POA if patient is not able to make medical decisions for themselves: Daughter I have reviewed the following clinical science consultant notes: ED note I have reviewed the results of the following tests: As above I have ordered the following tests: As above I have discussed the care of this patient with the following independent historian: I have independently interpreted the following test below: I have discussed the management of this patient with the following physician: Dr. Manriquez Past Medical History Past Medical History: Asthma, GERD/Reflux, Hyperlipidemia Additional Past Medical History / Comment(s): adrenal insuff. HX OF POLYP. FX RT ANKLE 06/04/21. RT ANKLE ORIF 06/13/21. osteopenia History of Any Multi-Drug Resistant Organisms: None Reported Past Surgical History: Tubal Ligation Additional Past Surgical History / Comment(s): COLONOSCOPY Past Anesthesia/Blood Transfusion Reactions: No Reported Reaction Past Psychological History: Depression Smoking Status: Never smoker Past Alcohol Use History: Rare Past Drug Use History: None Reported - Past Family History Mother Family Medical History: No Reported History Medications and Allergies Home Medications Medication Instructions Recorded Confirmed Type Atorvastatin [Lipitor] 10 mg PO HS 01/25/16 01/01/24 History Hydrocortisone [Cortef] 15 mg PO DAILY 01/25/16 01/01/24 History Montelukast [Singulair] 10 mg PO HS 01/25/16 01/01/24 History Pantoprazole Sodium [Protonix] 40 mg PO BID 01/25/16 01/01/24 History buPROPion XL [Wellbutrin Xl] 150 mg PO DAILY 01/25/16 01/01/24 History Fluticasone Propion/Salmeterol 1 puff INHALATION RT-BID 06/04/21 01/01/24 History [Fluticasone-Salmeterol 232-14] Cholecalciferol [Vitamin D3 (25 50 mcg PO DAILY #30 tab 06/15/21 01/01/24 Rx Mcg = 1000 Iu)] busPIRone HCL 10 mg PO BID 04/08/23 01/01/24 History Budesonide [Pulmicort] 0.5 mg INHALATION RT-BID PRN 01/01/24 01/01/24 History Fluticasone Nasal [place] [Flonase 1 spray EA NOSTRIL HS 01/01/24 01/01/24 History Nasal [place]] Ketorolac 0.5% Ophth Soln [Acular 1 drops LEFT EYE QID 01/01/24 01/01/24 History 0.5%] Vilazodone HCl [Viibryd] 40 mg PO DAILY 01/01/24 01/01/24 History Allergies Allergy/AdvReac Type Severity Reaction Status Date / Time ampicillin Allergy Rash/Hives Verified 01/01/24 09:59 Sulfa (Sulfonamide Allergy Rash/Hives Verified 01/01/24 09:59 Antibiotics) aspirin AdvReac Wheezing Verified 01/01/24 09:59 Physical Exam Vitals: Vital Signs Temp Pulse Resp BP Pulse Ox 01/01/24 12:18 129/59 01/01/24 11:28 93 18 128/66 96 01/01/24 10:23 79 18 140/70 96 01/01/24 08:46 98.5 F 81 16 130/66 95 Intake and Output 12/31/23 01/01/24 01/01/24 22:59 06:59 14:59 Other: Weight 67.132 kg Results CBC & Chem 7: 01/01/24 09:01 01/01/24 09:01 Labs: Abnormal Lab Results - Last 24 Hours (Table) 01/01/24 Range/Units 09:01 BUN 21 H (7-17) mg/dL Creatinine 1.30 H (0.52-1.04) mg/dL Glucose 103 H (74-99) mg/dL ALT 55 H (4-34) U/L
--- NOTE | 2024-01-01 14:37 | P.CRDCN ---
History of Present Illness Consult date: 01/01/24 Consult reason: chest pain History of present illness: History of present illness: This is a 63-year-old female patient of Dr. LUNA Ramachandran last seen in the office on 09/03/2021 with past medical history of hyperlipidemia, adrenal insufficiency, asthma, family history of premature coronary artery disease thank you. We have been asked to evaluate the patient for chest pain. Patient states that she had a little bit of chest pain yesterday that once in the midsternal left of the sternal area and radiated to the back and went away after couple hours. She had a similar type pain today that woke her from a sleep. She states it was a squeezing type pain but more intense than yesterday. She states she has none now and she believes the Nitropaste helped. She also has some lightheadedness and dizziness and felt like her heart was racing this morning. She has a cough that is nonproductive. No fever or chills. No nausea or vomiting. Patient is seen today in the emergency center waiting for a bed on the observation unit. EKG sinus rhythm Chest x-ray: No acute process CBC, INR, electrolytes are normal. BUN 21 creatinine 1.3. Troponin negative x 2. ALT 55. Home cardiac medications: Atorvastatin 10 mg at bedtime. Cardiac CT performed on 11/28/2021 reveals calcium score 14.7. Mild atherosclerotic plaque. Echocardiogram performed 09/25/2020 revealed EF of 55%, mild concentric left ventricular hypertrophy, mild to moderate AR, mild MR, mild TR. Stress test performed 05/18/2020 revealed patient was able to walk for 6 minutes standard Prudencio protocol with heart rate 160 bpm, no ischemia. Images somewhat suboptimal. Review Of Systems: At the time of my exam: CONSTITUTIONAL: Denies fever or chills. HEENT: Denies blurred vision, vision changes, or eye pain. Denies hemoptysis CARDIOVASCULAR: Denies chest pain. Denies orthopnea. Denies PND. Denies palpitations RESPIRATORY: Denies shortness of breath. GASTROINTESTINAL: Denies abdominal pain. Denies nausea or vomiting. HEMATOLOGIC: Denies bleeding disorders. GENITOURINARY: Denies any blood in urine. SKIN: Denies pruitis. Denies rash. Physical examination: Gen: This is a 63-year-old female in no acute distress. VS: reviewed blood pressure 129/59, heart rate 93, pulse ox 96% on room air. HEENT: Head is atraumatic, normocephalic. Pupils equal, round. Sclerae is anicteric. NECK: Supple. No JVD. LUNGS: Clear to auscultation. No wheezes or rhonchi. No intercostal retractions. HEART: Regular rate and rhythm. No murmur. ABDOMEN: Soft No tenderness. EXTREMITIES: No pedal edema. No calf tenderness. NEUROLOGICAL: Patient is awake, alert and oriented x3. Assessment: Chest pain, rule out acute coronary syndrome Hypertension Hyperlipidemia Adrenal insufficiency Family history of premature coronary artery disease Plan: Resume patient's home cardiac medications Patient has been started on aspirin 81 mg daily and continued on statin. Continue Nitropaste 1 inch every 6 hours Schedule patient for stress echocardiogram tomorrow to assess Obtain 2-D echocardiogram and Doppler study to assess cardiac structure and function Further recommendations to follow based upon clinical course Thank you kindly for this consultation. Nurse practitioner note has been reviewed, I agree with documented findings and plan of care. Patient was seen and examined. Past Medical History Past Medical History: Asthma, GERD/Reflux, Hyperlipidemia Additional Past Medical History / Comment(s): adrenal insuff. HX OF POLYP. FX RT ANKLE 06/04/21. RT ANKLE ORIF 06/13/21. osteopenia History of Any Multi-Drug Resistant Organisms: None Reported Past Surgical History: Tubal Ligation Additional Past Surgical History / Comment(s): COLONOSCOPY Past Anesthesia/Blood Transfusion Reactions: No Reported Reaction Past Psychological History: Depression Smoking Status: Never smoker Past Alcohol Use History: Rare Past Drug Use History: None Reported - Past Family History Mother Family Medical History: No Reported History Medications and Allergies Home Medications Medication Instructions Recorded Confirmed Type Atorvastatin [Lipitor] 10 mg PO HS 01/25/16 01/01/24 History Hydrocortisone [Cortef] 15 mg PO DAILY 01/25/16 01/01/24 History Montelukast [Singulair] 10 mg PO HS 01/25/16 01/01/24 History Pantoprazole Sodium [Protonix] 40 mg PO BID 01/25/16 01/01/24 History buPROPion XL [Wellbutrin Xl] 150 mg PO DAILY 01/25/16 01/01/24 History Fluticasone Propion/Salmeterol 1 puff INHALATION RT-BID 06/04/21 01/01/24 History [Fluticasone-Salmeterol 232-14] Cholecalciferol [Vitamin D3 (25 50 mcg PO DAILY #30 tab 06/15/21 01/01/24 Rx Mcg = 1000 Iu)] busPIRone HCL 10 mg PO BID 04/08/23 01/01/24 History Budesonide [Pulmicort] 0.5 mg INHALATION RT-BID PRN 01/01/24 01/01/24 History Fluticasone Nasal [place] [Flonase 1 spray EA NOSTRIL HS 01/01/24 01/01/24 History Nasal [place]] Ketorolac 0.5% Ophth Soln [Acular 1 drops LEFT EYE QID 01/01/24 01/01/24 History 0.5%] Vilazodone HCl [Viibryd] 40 mg PO DAILY 01/01/24 01/01/24 History Allergies Allergy/AdvReac Type Severity Reaction Status Date / Time ampicillin Allergy Rash/Hives Verified 01/01/24 09:59 Sulfa (Sulfonamide Allergy Rash/Hives Verified 01/01/24 09:59 Antibiotics) aspirin AdvReac Wheezing Verified 01/01/24 09:59 Physical Exam Vitals: Vital Signs Temp Pulse Resp BP Pulse Ox 01/01/24 12:18 129/59 01/01/24 11:28 93 18 128/66 96 01/01/24 10:23 79 18 140/70 96 01/01/24 08:46 98.5 F 81 16 130/66 95 Intake and Output 12/31/23 01/01/24 01/01/24 22:59 06:59 14:59 Other: Weight 67.132 kg Results 01/01/24 09:01 01/01/24 09:01 Cardiac Enzymes 01/01/24 01/01/24 01/01/24 Range/Units 09:01 09:01 12:17 AST 36 (14-36) U/L Troponin I <0.012 <0.012 (0.000-0.034) ng/mL Coagulation 01/01/24 Range/Units 09:01 PT 10.1 (10.0-12.5) sec APTT 23.2 (22.0-30.0) sec CBC 01/01/24 Range/Units 09:01 WBC 8.9 (3.8-10.6) k/uL RBC 4.66 (3.80-5.40) m/uL Hgb 12.6 (11.4-16.0) gm/dL Hct 39.6 (34.0-46.0) % Plt Count 427 (150-450) k/uL Comprehensive Metabolic Panel 01/01/24 Range/Units 09:01 Sodium 138 (137-145) mmol/L Potassium 4.2 (3.5-5.1) mmol/L Chloride 107 (98-107) mmol/L Carbon Dioxide 29 (22-30) mmol/L BUN 21 H (7-17) mg/dL Creatinine 1.30 H (0.52-1.04) mg/dL Glucose 103 H (74-99) mg/dL Calcium 8.7 (8.4-10.2) mg/dL AST 36 (14-36) U/L ALT 55 H (4-34) U/L Alkaline Phosphatase 89 (38-126) U/L Total Protein 6.3 (6.3-8.2) g/dL Albumin 3.6 (3.5-5.0) g/dL Current Medications Generic Name Dose Route Start Last Admin Trade Name Freq PRN Reason Stop Dose Admin Aspirin 81 mg 01/02/24 09:00 Aspirin 81 Mg PO DAILY [facility] Atorvastatin Calcium 10 mg 01/01/24 21:00 Atorvastatin 10 Mg Tab PO HS [facility] Bupropion HCl 150 mg 01/02/24 09:00 Bupropion Xl 150 Mg Tab.Er.24h PO DAILY [facility] Buspirone HCl 10 mg 01/01/24 21:00 Buspirone Hcl 10 Mg Tab PO BID [facility] Enoxaparin Sodium 40 mg 01/02/24 09:00 Enoxaparin 40 Mg/0.4 Ml Syringe SQ DAILY [facility] Hydrocortisone 15 mg 01/02/24 09:00 Hydrocortisone 10 Mg Tab PO DAILY [facility] Montelukast Sodium 10 mg 01/01/24 21:00 Montelukast 10 Mg Tab PO HS [facility] Nitroglycerin 0.4 mg 01/01/24 11:21 Nitroglycerin Sl Tabs 0.4 Mg Tab SUBLINGUAL Q5M PRN Chest Pain Nitroglycerin 1 inch 01/01/24 12:00 01/01/24 11:33 Nitroglycerin Oint 1 Inch/Gm Packet TOPICAL 1 inch Q6HR GUERDA Administration Vilazodone Hcl [ 40 mg 01/02/24 09:00 Viibryd] 40 Mg PO Tablet DAILY [facility]ER[facility] Pantoprazole Sodium 40 mg 01/01/24 21:00 Pantoprazole 40 Mg Tablet PO BID GUERDA Intake and Output 12/31/23 01/01/24 01/01/24 22:59 06:59 14:59 Other: Weight 67.132 kg Patient Weight 01/02/24 06:59 Weight 67.132 kg 01/01/24 09:01 01/01/24 09:01
--- NOTE | 2024-01-01 17:23 | CA ---
Transthoracic Echo Report Name: Misty Daniels Age: 63 Gender: F : 1960 Exam Date: 01/01/2024 13:37 Exam Location: [place] Echo Ht (in): 64 Wt (lb): 148 Ordering Physician: Jesus Nash MD Attending/Referring Phys: Care Management Associate Stephenie Vallejo RDCS Procedure CPT: Indications: CP Cardiac Hx: Technical Quality: Good Contrast 1: Total Dose (mL): Contrast 2: Total Dose (mL): MEASUREMENTS (Male / Female) Normal Values 2D ECHO LV Diastolic Diameter PLAX 3.5 cm 4.2 - 5.9 / 3.9 - 5.3 cm LV Systolic Diameter PLAX 2.3 cm IVS Diastolic Thickness 1.3 cm 0.6 - 1.0 / 0.6 - 0.9 cm LVPW Diastolic Thickness 1.3 cm 0.6 - 1.0 / 0.6 - 0.9 cm LV Relative Wall Thickness 0.7 RV Internal Dim ED PLAX 2.3 cm LA Systolic Diameter LX 3.2 cm 3.0 - 4.0 / 2.7 - 3.8 cm LV Diastolic Volume MOD BP 59.8 cm??? 67 - 155 / 56 - 104 cm??? LV Systolic Volume MOD BP 21.1 cm??? 22 - 58 / 19 - 49 cm??? LV Ejection Fraction MOD BP 64.7 % >= 55 % LV Cardiac Index MOD BP 1786.2 cm???/min???m??? LV Diastolic Volume MOD 4C 72.4 cm??? LV Systolic Volume MOD 4C 25.0 cm??? LV Ejection Fraction MOD 4C 65.5 % LV Cardiac Index MOD 4C 2189.0 cm???/min???m??? LV Diastolic Length 4C 6.8 cm LV Systolic Length 4C 5.8 cm LV Diastolic Volume MOD 2C 47.0 cm??? LV Systolic Volume MOD 2C 17.1 cm??? LV Ejection Fraction MOD 2C 63.7 % LV Cardiac Index MOD 2C 1381.8 cm???/min???m??? LV Diastolic Length 2C 6.4 cm LV Systolic Length 2C 5.5 cm Ascending Aorta Diameter 3.4 cm M-MODE Aortic Root Diameter MM 3.8 cm LA Systolic Diameter MM 3.4 cm LA Ao Ratio MM 0.9 DOPPLER AI Peak Velocity 410.9 cm/s AI Peak Gradient 67.5 mmHg AI Pressure Half Time 543.1 ms Mitral E Point Velocity 54.0 cm/s Mitral A Point Velocity 67.5 cm/s Mitral E to A Ratio 0.8 MV Deceleration Time 226.5 ms MV E' Velocity 4.4 cm/s Mitral E to MV E' Ratio 12.2 TR Peak Velocity 169.3 cm/s TR Peak Gradient 11.5 mmHg Right Ventricular Systolic Press 16.5 mmHg FINDINGS Left Ventricle Left ventricular ejection fraction is estimated at 55-60 %. Moderately increased septal wall thickness. Mildly increased posterior wall thickness. No obvious regional wall motion abnormalities. Right Ventricle Normal right ventricular size and function. Right ventricular systolic pressure within normal limits. Right Atrium Normal right atrial size. Left Atrium Normal left atrial size. Mitral Valve Structurally normal mitral valve. Moderate mitral regurgitation. Anteriorly directed mitral regurgitation jet. Aortic Valve No aortic stenosis. Trileaflet aortic valve. Moderate aortic regurgitation. Tricuspid Valve Structurally normal tricuspid valve. Trace to mild tricuspid regurgitation. Pulmonic Valve Structurally normal pulmonic valve. Trace pulmonic regurgitation. Pericardium Left pleural effusion. No pericardial effusion. Aorta Mildly dilated aortic annulus. CONCLUSIONS Normal LV function Moderate aortic regurgitation Moderate mitral regurgitation Previewed by: Dr. Francesco Moore MD (Electronically Signed) Final Date: 01 January 2024 17:22
[2024-01-01] MEDS: KETOROLAC 0.5% OPHTH DROPS 5 ML BTL LEFT EYE SCH (18:20)
[2024-01-01] MEDS: MONTELUKAST 10 MG TAB PO SCH (20:13)
[2024-01-01] MEDS: busPIRone HCl 10 MG TAB PO SCH (20:13)
[2024-01-01] MEDS: PANTOPRAZOLE 40 MG TABLET PO SCH (20:14)
[2024-01-01] MEDS: ATORVASTATIN 10 MG TAB PO SCH (20:14)
[2024-01-02] MEDS ORDERED: ASPIRIN 325 MG TAB PO SCH (09:00)
[2024-01-02 09:13] VITALS: BP 145/74; PULSE 79; RESP 16; TEMP 97.9
--- NOTE | 2024-01-02 10:00 | P.PN ---
Subjective Progress Note Date: 01/02/24 Consult reason: chest pain History of present illness: This is a 63-year-old female patient of Dr. LUNA Ramachandran last seen in the office on 09/03/2021 with past medical history of hyperlipidemia, adrenal insufficiency, asthma, family history of premature coronary artery disease thank you. We have been asked to evaluate the patient for chest pain. Patient states that she had a little bit of chest pain yesterday that once in the midsternal left of the sternal area and radiated to the back and went away after couple hours. She had a similar type pain today that woke her from a sleep. She states it was a squeezing type pain but more intense than yesterday. She states she has none now and she believes the Nitropaste helped. She also has some lightheadedness and dizziness and felt like her heart was racing this morning. She has a cough that is nonproductive. No fever or chills. No nausea or vomiting. Patient is seen today in the emergency center waiting for a bed on the observation unit. EKG sinus rhythm Chest x-ray: No acute process CBC, INR, electrolytes are normal. BUN 21 creatinine 1.3. Troponin negative x 2. ALT 55. Home cardiac medications: Atorvastatin 10 mg at bedtime. Cardiac CT performed on 11/28/2021 reveals calcium score 14.7. Mild atherosclerotic plaque. Echocardiogram performed 09/25/2020 revealed EF of 55%, mild concentric left ventricular hypertrophy, mild to moderate AR, mild MR, mild TR. Stress test performed 05/18/2020 revealed patient was able to walk for 6 minutes standard Prudencio protocol with heart rate 160 bpm, no ischemia. Images somewhat suboptimal. 01/01 Patient is seen today on the observation unit. She denies having any chest pain at this time. She is scheduled for stress echocardiogram this morning. Echocardiogram reveals normal LV function. Moderate aortic regurgitation, moderate mitral regurgitation. Blood pressure 145/74, heart rate 79, pulse ox 96% on room air. Physical examination: Gen: This is a 63-year-old female in no acute distress. VS: reviewed HEENT: Head is atraumatic, normocephalic. Pupils equal, round. Sclerae is anicteric. NECK: Supple. No JVD. LUNGS: Clear to auscultation. No wheezes or rhonchi. No intercostal retractions. HEART: Regular rate and rhythm. No murmur. ABDOMEN: Soft No tenderness. EXTREMITIES: No pedal edema. No calf tenderness. NEUROLOGICAL: Patient is awake, alert and oriented x3. Assessment: Chest pain, rule out acute coronary syndrome Hypertension Hyperlipidemia Adrenal insufficiency Family history of premature coronary artery disease Plan: Resume patient's home cardiac medications Continue aspirin 81 mg daily and continued on statin. Discontinue Nitropaste Patient is scheduled for stress echocardiogram today If stress test is unremarkable, patient is cleared for discharge home and may follow-up with Dr. LUNA Ramachandran in 1 to 2 weeks. Nurse practitioner note has been reviewed, I agree with documented findings and plan of care. Patient was seen and examined. Objective - Vital Signs Vital signs: Vital Signs Temp 98.3 F 01/02/24 02:00 Pulse 85 01/02/24 02:00 Resp 18 01/02/24 02:00 BP 127/74 01/02/24 02:00 Pulse Ox 97 01/02/24 02:00 FiO2 Intake & Output 01/01/24 01/02/24 01/02/24 18:59 06:59 18:59 Weight 67.132 kg 67.132 kg Other: Voiding Method Toilet # Voids 2 - Labs CBC & Chem 7: 01/01/24 09:01 01/01/24 09:01 Labs: Abnormal Lab Results - Last 24 Hours (Table) 01/01/24 Range/Units 09:01 BUN 21 H (7-17) mg/dL Creatinine 1.30 H (0.52-1.04) mg/dL Glucose 103 H (74-99) mg/dL ALT 55 H (4-34) U/L
--- NOTE | 2024-01-02 11:23 | CA ---
Stress Echo Report Misty Daniels Age: 63 Gender: F : 1960 Exam Date: 01/02/2024 10:59 Exam Location: [place] Echo Ht (in): 64 Wt (lb): 148 Ordering Physician: Marci Luong Referring Physician: [id number] Process Trainer: KULDIP SANON Technologist Procedure CPT: Indication: Chest Pain ICD-9 Codes: Rhythm: Patient History: CP, PALP, CHOL, FAMILY HX, ASTHMA Cardiac Medications: SEE CHART Medications in past 24 hours: Contrast: N/A Stress Results Protocol: Prudencio Total dose(mL): Exercise Duration (min:sec): Max ST Depression (mm): Angina Score: Hernández Score: METS: 7.3 Resting HR: 119 Resting BP: 145 / 79 Peak HR: 165 Peak BP: 212 / 46 Max Predicted HR: 155 106 % Max Predicted HR Target HR: 132 Double Product: 10724 Stress Summary: BP Response: Reason for Termination: Reached target heart rate or work-load Cardiac Symptoms: ECG Analysis Resting ECG: Normal sinus rhythm normal axis normal intervals Stress ECG: Patient exercised on Prudencio protocol for 6 minutes achieving 85% of predicted maximal heart rate without chest pain or diagnostic ST segment depression Arrhythmia: Echo Analysis Resting Echo: Normal left ventricular size wall motion systolic function Peak Echo Analysis: Normal hyperdynamic response of all segments of myocardium noted MEASUREMENTS (Male/Female) Normal Values CONCLUSIONS Average exercise tolerance Negative stress test by EKG criteria Negative stress echo Dr. Francesco Moore MD (Electronically Signed) Final Date: 02 January 2024 11:22
[2024-01-02] MEDS: ASPIRIN 81 MG PO SCH (12:17)
[2024-01-02] MEDS: ENOXAPARIN 40 MG/0.4 ML SYRINGE SQ SCH (12:17)
[2024-01-02] MEDS: HYDROCORTISONE 10 MG TAB PO SCH (12:18)
[2024-01-02] MEDS: buPROPion XL 150 MG TAB.ER.24H PO SCH (12:19)
[2024-01-02 12:21] LABS: Chol/HDL Ratio 2.85 Ratio
[2024-01-02] MEDS: Vilazodone Hcl [Viibryd] 40 MG Tablet PO SCH (12:22)
--- NOTE | 2024-01-07 17:39 | P.DS ---
Providers Date of admission: 01/01/24 11:22 Expected date of discharge: 01/02/24 Attending physician: George Rebollar MD Consults: 01/01/24 11:22 Consult Physician Urgent Consulting Provider: [facility] Consult Reason/Comments: Chest pain Do you want consulting provider notified?: Yes Primary care physician: Jorge Alberto [facility] Course: 63 year old F with PMH of HLD, Asthma, Anxiety, adrenal insufficiency presents to the ED. She reports chest pain that started yesterday around 8AM. Yesterday, the pain was intermittent, nagging and aching in nature wrapping around the left side of her chest to the back, occuring about 3-4 times throughout the day. No inciting event. No rash. Not aggravated with deep inspiration and movement. Nonexertional. This morning the chest pain work her up around 7AM and was much more intense. She reports her father having a NC in his 40s. Non smoker. Denies shortness of breath, N/V or diaphoresis. She received [address] her way to the hospital which alleviated her pain. In the ED she underwent extensive evaluation. BP 130/66, HR 81, T 98.5F, RR 16, 95% on RA. CBC, Coag panel, CMP significant for BUN 21, Cr 1.3, glu 103, ALT 55. Troponin < 0.012. EKG sinus rhythm with no ST elevation or depression. CXR chronic changes. Patient is admitted for chest pain, rule out ACS with Cardiology consultation. 01/01 Patient was seen and examined. No chest pain. Troponins < 0.012 x 3. Echo EF 55-60% with moderate AR/MR. Plans for stress test today. Discharge home if stress test negative. General: non toxic, no distress, appears at stated age Derm: warm, dry Head: atraumatic, normocephalic, symmetric Eyes: EOMI, no lid lag, anicteric sclera Mouth: no lip lesion, mucus membranes moist Cardiovascular: S1S2 reg, no murmur Lungs: CTA bilateral, no rhonchi, no rales , no accessory muscle use Ext: no gross muscle atrophy, no edema, no contractures Neuro: no focal neuro deficits Psych: Alert, oriented, appropriate affect Discharge Diagnosis: Chest pain Chronic kidney disease Asthma not in acute exacerbation. Anxiety Adrenal insufficiency This complex discharge took 35 minutes to complete. Patient Condition at Discharge: Stable Plan - Discharge Summary Discharge Rx Participant: No New Discharge Prescriptions: Continue Pantoprazole Sodium [Protonix] 40 mg PO BID Montelukast [Singulair] 10 mg PO HS Hydrocortisone [Cortef] 15 mg PO DAILY buPROPion XL [Wellbutrin XL] 150 mg PO DAILY Atorvastatin [Lipitor] 10 mg PO HS Fluticasone Propion/Salmeterol [Fluticasone-Salmeterol 232-14] 1 puff INHALATION RT-BID Cholecalciferol [Vitamin D3 (25 Mcg = 1000 Iu)] 50 mcg PO DAILY #30 tab busPIRone HCL 10 mg PO BID Vilazodone HCl [Viibryd] 40 mg PO DAILY Fluticasone Nasal [place] [Flonase Nasal [place]] 1 spray EA NOSTRIL HS Ketorolac 0.5% Ophth Soln [Acular 0.5%] 1 drops LEFT EYE QID Budesonide [Pulmicort] 0.5 mg INHALATION RT-BID PRN PRN Reason: Shortness Of Breath Discharge Medication List Atorvastatin [Lipitor] 10 mg PO HS 01/25/16 [History] Hydrocortisone [Cortef] 15 mg PO DAILY 01/25/16 [History] Montelukast [Singulair] 10 mg PO HS 01/25/16 [History] Pantoprazole Sodium [Protonix] 40 mg PO BID 01/25/16 [History] buPROPion XL [Wellbutrin XL] 150 mg PO DAILY 01/25/16 [History] Fluticasone Propion/Salmeterol [Fluticasone-Salmeterol 232-14] 1 puff INHALATION RT-BID 06/04/21 [History] Cholecalciferol [Vitamin D3 (25 Mcg = 1000 Iu)] 50 mcg PO DAILY #30 tab 06/15/21 [Rx] busPIRone HCL 10 mg PO BID 04/08/23 [History] Budesonide [Pulmicort] 0.5 mg INHALATION RT-BID PRN 01/01/24 [History] Fluticasone Nasal [place] [Flonase Nasal [place]] 1 spray EA NOSTRIL HS 01/01/24 [History] Ketorolac 0.5% Ophth Soln [Acular 0.5%] 1 drops LEFT EYE QID 01/01/24 [History] Vilazodone HCl [Viibryd] 40 mg PO DAILY 01/01/24 [History] Follow up Appointment(s)/Referral(s): Laura Ramachandran MD [STAFF PHYSICIAN] - 01/13/24 9:30 am Jorge Alberto Saleh MD [Primary Care Provider] - 01/07/24 1:30 pm (with Melida KELLER) Patient Instructions/Handouts: Chest Pain (DC), Stress Echocardiogram (DC) Discharge Disposition: HOME SELF-CARE
== END 2024-01-02 13:27 | disposition home or self-care (01) ==
LOC: EC 08:42 → 6NMEDSUR 11:22
PROVIDERS: ADMIT Internal Medicine; ATTEND Internal Medicine
DX: R07.89 Other chest pain (principal); I08.3 Combined rheumatic disorders of mitral, aortic and tricuspid valves; I13.10 Hypertensive heart and chronic kidney disease without heart failure, with stage 1 through stage 4 chronic kidney disease, or unspecified chronic kidney disease; N18.9 Chronic kidney disease, unspecified; I25.10 Atherosclerotic heart disease of native coronary artery without angina pectoris; J45.909 Unspecified asthma, uncomplicated; E27.40 Unspecified adrenocortical insufficiency; E78.00 Pure hypercholesterolemia, unspecified; M54.9 Dorsalgia, unspecified; R42 Dizziness and giddiness; F41.9 Anxiety disorder, unspecified; Z79.52 Long term (current) use of systemic steroids; Z79.51 Long term (current) use of inhaled steroids; Z79.899 Other long term (current) drug therapy; Z88.0 Allergy status to penicillin; Z88.2 Allergy status to sulfonamides; Z88.6 Allergy status to analgesic agent; Z82.49 Family history of ischemic heart disease and other diseases of the circulatory system
CPT/HCPCS: 99285; 36415; 93005; 93306; 93351; 80061; 80053; 83735; 84484; 85025; 85610; 85730; 71046; G0378 ×2

== ENCOUNTER → 2024-01-28 | Outpatient (CLI) | payer MEDICARE ==
--- NOTE | 2024-01-28 11:15 | CT ---
EXAMINATION TYPE: CT sinus wo con DATE OF EXAM: 01/28/2024 COMPARISON: None HISTORY: Chronic sinusitis, nasal polyp CT DLP: [address] of the paranasal sinuses was performed in the axial and coronal planes. Bone and soft tissue settings are submitted. Postoperative changes of medial maxillary antrectomy and near total ethmoidectomy. There is at least moderate mucosal thickening involving the maxillary, remaining ethmoidal air cells and right frontal sinus and sphenoid sinus. Underlying polyposis is not excluded. The nasal septum is midline. No bony destructive changes are seen within the field of view. IMPRESSION: 1. Postoperative changes. 2. Changes of at least moderate chronic pansinusitis. Underlying polyposis is not excluded. Normal unenhanced CT of the paranasal sinuses.
== END | disposition home or self-care (01) ==
LOC: RADCTMAIN 10:03
PROVIDERS: ATTEND Otolaryngology
DX: J32.4 Chronic pansinusitis (principal); J33.0 Polyp of nasal cavity
CPT/HCPCS: 70486

== ENCOUNTER 2024-03-07 23:16 | Emergency (ER) | payer OTHER ==
--- NOTE | 2024-03-08 00:06 | ED ---
General Adult HPI - General Source: RN notes reviewed <Meir Rivera - Last Filed: 03/08/24 00:08> - General Source: RN notes reviewed, old records reviewed Mode of arrival: ambulatory Limitations: no limitations - History of Present Illness -: days(s) Radiation: non-radiation Severity scale (1-10): 3 Consistency: constant Improves with: none Associated Symptoms: denies other symptoms Treatments Prior to Arrival: none <Werner Goodson - Last Filed: 03/19/24 22:19> - General Stated complaint: Vomiting blood Time Seen by Provider: 03/08/24 00:00 - History of Present Illness Initial comments: Quick note 63-year-old female presented to the ED with a chief complaint of nausea v omiting. Since Friday has had some nausea vomiting. Did note 1 episode of diarrhea on Friday however since then has resolved. Denies abdominal pain. Does note a history of adrenal insufficiency and secondary to this has been unable to take her steroids. (Meir Rivera) 63-year-old white female presented to the ED with chief complaint of nausea vomiting nausea vomiting since Friday feels like is from coming off of her steroids. (Werner Goodson) - Related Data Home Medications Medication Instructions Recorded Confirmed Atorvastatin [Lipitor] 10 mg PO HS 01/25/16 01/01/24 Hydrocortisone [Cortef] 15 mg PO DAILY 01/25/16 01/01/24 Montelukast [Singulair] 10 mg PO HS 01/25/16 01/01/24 Pantoprazole Sodium [Protonix] 40 mg PO BID 01/25/16 01/01/24 buPROPion XL [Wellbutrin XL] 150 mg PO DAILY 01/25/16 01/01/24 Fluticasone Propion/Salmeterol 1 puff INHALATION RT-BID 06/04/21 01/01/24 [Fluticasone-Salmeterol 232-14] busPIRone HCL 10 mg PO BID 04/08/23 01/01/24 Budesonide [Pulmicort] 0.5 mg INHALATION RT-BID PRN 01/01/24 01/01/24 Fluticasone Nasal Jay Em [Flonase 1 spray EA NOSTRIL HS 01/01/24 01/01/24 Nasal Jay Em] Ketorolac 0.5% Ophth Soln [Acular 1 drops LEFT EYE QID 01/01/24 01/01/24 0.5%] Vilazodone HCl [Viibryd] 40 mg PO DAILY 01/01/24 01/01/24 Previous Rx's Medication Instructions Recorded Cholecalciferol [Vitamin D3 (25 50 mcg PO DAILY #30 tab 06/15/21 Mcg = 1000 Iu)] Allergies Allergy/AdvReac Type Severity Reaction Status Date / Time ampicillin Allergy Rash/Hives Verified 03/08/24 00:09 Sulfa (Sulfonamide Allergy Rash/Hives Verified 03/08/24 00:09 Antibiotics) aspirin AdvReac Wheezing Verified 03/08/24 00:09 Review of Systems ROS Other: All systems not noted in ROS Statement are negative. <Meir Rivera - Last Filed: 03/08/24 00:08> ROS Other: All systems not noted in ROS Statement are negative. <Werner Goodson - Last Filed: 03/19/24 22:19> ROS Statement: Those systems with pertinent positive or pertinent negative responses have been documented in the HPI. Past Medical History Past Medical History: Asthma, GERD/Reflux, Hyperlipidemia Additional Past Medical History / Comment(s): adrenal insuff. HX OF POLYP. FX RT ANKLE 06/04/21. RT ANKLE ORIF 06/13/21. osteopenia History of Any Multi-Drug Resistant Organisms: None Reported Past Surgical History: Tubal Ligation Additional Past Surgical History / Comment(s): COLONOSCOPY Past Anesthesia/Blood Transfusion Reactions: No Reported Reaction Past Psychological History: Depression Smoking Status: Never smoker Past Alcohol Use History: Rare Past Drug Use History: None Reported - Past Family History Mother Family Medical History: No Reported History <Meir Rivera - Last Filed: 03/08/24 00:08> General Exam <Meir Rivera - Last Filed: 03/08/24 00:08> General appearance: alert, in no apparent distress, anxious Head exam: Present: atraumatic, normocephalic, normal inspection Eye exam: Present: normal appearance, PERRL, EOMI. Absent: scleral icterus, conjunctival injection, periorbital swelling ENT exam: Present: normal exam, mucous membranes dry Neck exam: Present: normal inspection. Absent: tenderness, meningismus, lymphadenopathy Respiratory exam: Present: normal lung sounds bilaterally. Absent: respiratory distress, wheezes, rales, rhonchi, stridor Cardiovascular Exam: Present: normal rhythm, tachycardia, normal heart sounds. Absent: systolic murmur, diastolic murmur, rubs, gallop, clicks GI/Abdominal exam: Present: soft, normal bowel sounds. Absent: distended, tenderness, guarding, rebound, rigid Extremities exam: Present: normal inspection, full ROM, normal capillary refill. Absent: tenderness, pedal edema, joint swelling, calf tenderness Back exam: Present: normal inspection Neurological exam: Present: alert, oriented X3, CN II-XII intact Psychiatric exam: Present: normal affect, normal mood Skin exam: Present: warm, dry, intact, normal color. Absent: rash <Werner Goodson - Last Filed: 03/19/24 22:19> - General Exam Comments Initial Comments: Visual Physical Exam Vital signs reviewed General: Well-appearing, nontoxic, no acute distress. Head: Normocephalic, atraumatic Eyes: PERRLA, EOMI ENT: Airway patent Chest: Nonlabored breathing Skin: No visual rash, normal skin tone Neuro: Alert and oriented 3 Musculoskeletal: No gross abnormalities (Meir Rivera) Course <Werner Goodson - Last Filed: 03/19/24 22:19> Vital Signs 03/08/24 03/08/24 03/08/24 00:05 00:09 02:09 Temperature 98.8 F Pulse Rate 112 H 92 68 Respiratory 20 16 16 Rate Blood Pressure 113/73 98/56 110/70 O2 Sat by Pulse 92 L 96 98 Oximetry 03/08/24 03/08/24 04:09 04:45 Temperature 98.4 F Pulse Rate 100 104 H Respiratory 16 16 Rate Blood Pressure 106/56 96/56 O2 Sat by Pulse 98 98 Oximetry - Reevaluation(s) Reevaluation #1: 03/08/24 04:14 Medical records reviewed (Werner Goodson) Reevaluation #2: 03/08/24 04:14 Patient symptoms improved cellulitis for discharge home (Werner Goodson) Reevaluation #3: 03/08/24 04:14 Patient informed of results and questions answered (Werner Goodson) Reevaluation #4: 03/08/24 04:14Was pt. sent in by a medical professional or institution ([facility], [employer], urgent care, hospital, or prison...) When possible be specific @ -no Did you speak to anyone other than the patient for history (EMS, parent, family, police, friend...)? What history was obtained from this source @ -no Did you review nursing and triage notes (agree or disagree)? Why? @ -agree Are old charts reviewed (outside hosp., previous admission, EMS record, old EKG, old radiological studies, urgent care reports/EKG's, prison records)? Report findings @ -yes Differential Diagnosis (chest pain, altered mental status, abdominal pain women, abdominal pain men, vaginal bleeding, weakness, fever, dyspnea, syncope, headache, dizziness, GI bleed, back pain, seizure, CVA, palpatations, mental health, musculoskeletal)? @ -prior EKG interpreted by me (3pts min.). @ -yes X-rays interpreted by me (1pt min.). @ -yes negative for acute disease CT interpreted by me (1pt min.). @ -no U/S interpreted by me (1pt. min.). @ -no What testing was considered but not performed or refused? (CT, X-rays, U/S, labs)? Why? @ -none What meds were considered but not given or refused? Why? @ -none Did you discuss the management of the patient with other professionals (professionals i.e. [facility], [employer], lab, RT, psych nurse, child welfare social worker, member service representative, teacher, fire officer, onsite case manager)? Give summary @ -no Was smoking cessation discussed for >3mins.? @ -no Was critical care preformed (if so, how long)? @ -no Were there social determinants of health that impacted care today? How? (Homelessness, low income, unemployed, alcoholism, drug addiction, transportation, low edu. Level, literacy, decrease access to med. care, custodial, rehab)? @ -none Was there de-escalation of care discussed even if they declined (Discuss DNR or withdrawal of care, Hospice)? DNR status @ -no What co-morbidities impacted this encounter? (DM, HTN, Smoking, COPD, CAD, Cancer, CVA, ARF, Chemo, Hep., AIDS, mental health diagnosis, sleep apnea, morbid obesity)? @ -none Was patient admitted / discharged? Hospital course, mention meds given and route, prescriptions, significant lab abnormalities, going to OR and other pertinent info. @ - 63 female to ER for evaluation of nausea vomiting persistent nausea vomiting that improved here in the ER patient feels well and can be discharged home. Dishcharged Undiagnosed new problem with uncertain prognosis? @ -no Drug Therapy requiring intensive monitoring for toxicity (Heparin, Nitro, Insulin, Cardizem)? @ -no Were any procedures done? @ -no Diagnosis/symptom? @ -Nausea vomiting weakness Acute, or Chronic, or Acute on Chronic? @ -Acute Uncomplicated (without systemic symptoms) or Complicated (systemic symptoms)? @ -Complicated Side effects of treatment? @ -no Exacerbation, Progression, or Severe Exacerbation? @ -exacerbation Poses a threat to life or bodily function? How? (Chest pain, [place], [place], pneumonia, PE, COPD, DKA, ARF, appy, cholecystitis, CVA, Diverticulitis, Homicidal, Suicidal, threat to staff... and all critical care pts) @ -yes with adrenal insufficiency (Werner Goodson) Reevaluation #5: Differential Abdominal Pain Women: Appendicitis, Cholecystitis, diverticulosis, ischemic bowel, pancreatitis, hepatitis, UTI, gastroenteritis, AAA, incarcerated hernia, bowel obstruction, constipation, inflammatory bowel, hepatitis, peptic ulcer disease, splenic infarction, perforated viscus, vulvitis, ovarian torsion, PID, kidney stone, placenta abruption, this is not meant to be an all-inclusive list (eWrner Goodson) EKG Findings - EKG Comments: EKG Findings:: EKG is sinus 85 ID 138 QRS 85 QTc 450 - EKG Results: EKG: interpreted by ERMD <Werner Goodson - Last Filed: 03/19/24 22:19> Medical Decision Making <Meir Rivera - Last Filed: 03/08/24 00:08> - Lab Data Result diagrams: 03/08/24 01:59 03/08/24 01:59 - EKG Data -: EKG Interpreted by Me - Radiology Data Radiology results: report reviewed (Chest x-ray and x-ray KUB negative for acute disease), image reviewed <Werner Goodson - Last Filed: 03/19/24 22:19> - Medical Decision Making Quicknote portion performed. Signed Meir Rivera PA-C (Meir Rivera) 63 female to ER for evaluation of nausea vomiting persistent nausea vomiting that improved here in the ER patient feels well and can be discharged home (Werner Goodson) - Lab Data Lab Results 03/08/24 03/08/24 03/08/24 Range/Units 01:59 01:59 01:59 WBC 14.5 H (3.8-10.6) k/uL RBC 5.54 H (3.80-5.40) m/uL Hgb 14.4 (11.4-16.0) gm/dL Hct 46.6 H (34.0-46.0) % MCV 84.1 (80.0-100.0) fL MCH 26.0 (25.0-35.0) pg MCHC 31.0 (31.0-37.0) g/dL RDW 13.9 (11.5-15.5) % Plt Count 491 H (150-450) k/uL MPV 7.9 Neutrophils % 74 % Lymphocytes % 14 % Monocytes % 8 % Eosinophils % 2 % Basophils % 1 % Neutrophils # 10.7 H (1.3-7.7) k/uL Lymphocytes # 2.1 (1.0-4.8) k/uL Monocytes # 1.2 H (0-1.0) k/uL Eosinophils # 0.3 (0-0.7) k/uL Basophils # 0.2 (0-0.2) k/uL Sodium 136 L (137-145) mmol/L Potassium 4.0 (3.5-5.1) mmol/L Chloride 96 L (98-107) mmol/L Carbon Dioxide 29 (22-30) mmol/L Anion Gap 11 mmol/L BUN 32 H (7-17) mg/dL Creatinine 1.68 H (0.52-1.04) mg/dL Est GFR (CKD-EPI)AfAm 36 (>60 ml/min/1.73 sqM) Est GFR (CKD-EPI)NonAf 32 (>60 ml/min/1.73 sqM) Glucose 107 H (74-99) mg/dL Plasma Lactic Acid Kuldip (0.7-2.0) mmol/L Calcium 11.6 H (8.4-10.2) mg/dL Phosphorus 5.1 H (2.5-4.5) mg/dL Magnesium 2.1 (1.6-2.3) mg/dL Total Bilirubin 1.0 (0.2-1.3) mg/dL AST 36 (14-36) U/L ALT 35 H (4-34) U/L Alkaline Phosphatase 99 (38-126) U/L Total Protein 7.1 (6.3-8.2) g/dL Albumin 4.5 (3.5-5.0) g/dL Urine Color Urine Appearance (Clear) Urine pH (5.0-8.0) Ur Specific [place] (1.001-1.035) Urine Protein (Negative) Urine Glucose (UA) (Negative) Urine Ketones (Negative) Urine Blood (Negative) Urine Nitrite (Negative) Urine Bilirubin (Negative) Urine Urobilinogen (<2.0) mg/dL Ur Leukocyte Esterase (Negative) Urine RBC (0-5) /hpf Urine WBC (0-5) /hpf Ur Squamous Epith Cells (0-4) /hpf Urine Bacteria (None) /hpf Urine Mucus (None) /hpf Influenza Type A (PCR) Not Detected (Not Detectd) Influenza Type B (PCR) Not Detected (Not Detectd) RSV (PCR) Not Detected (Not Detectd) SARS-CoV-2 (PCR) Not Detected (Not Detectd) 03/08/24 03/08/24 Range/Units 02:20 02:20 WBC (3.8-10.6) k/uL RBC (3.80-5.40) m/uL Hgb (11.4-16.0) gm/dL Hct (34.0-46.0) % MCV (80.0-100.0) fL MCH (25.0-35.0) pg MCHC (31.0-37.0) g/dL RDW (11.5-15.5) % Plt Count (150-450) k/uL MPV Neutrophils % % Lymphocytes % % Monocytes % % Eosinophils % % Basophils % % Neutrophils # (1.3-7.7) k/uL Lymphocytes # (1.0-4.8) k/uL Monocytes # (0-1.0) k/uL Eosinophils # (0-0.7) k/uL Basophils # (0-0.2) k/uL Sodium (137-145) mmol/L Potassium (3.5-5.1) mmol/L Chloride (98-107) mmol/L Carbon Dioxide (22-30) mmol/L Anion Gap mmol/L BUN (7-17) mg/dL Creatinine (0.52-1.04) mg/dL Est GFR (CKD-EPI)AfAm (>60 ml/min/1.73 sqM) Est GFR (CKD-EPI)NonAf (>60 ml/min/1.73 sqM) Glucose (74-99) mg/dL Plasma Lactic Acid Kuldip 1.9 (0.7-2.0) mmol/L Calcium (8.4-10.2) mg/dL Phosphorus (2.5-4.5) mg/dL Magnesium (1.6-2.3) mg/dL Total Bilirubin (0.2-1.3) mg/dL AST (14-36) U/L ALT (4-34) U/L Alkaline Phosphatase (38-126) U/L Total Protein (6.3-8.2) g/dL Albumin (3.5-5.0) g/dL Urine Color Light Yellow Urine Appearance Clear (Clear) Urine pH 6.5 (5.0-8.0) Ur Specific [place] 1.016 (1.001-1.035) Urine Protein 1+ H (Negative) Urine Glucose (UA) Negative (Negative) Urine Ketones 1+ H (Negative) Urine Blood Negative (Negative) Urine Nitrite Negative (Negative) Urine Bilirubin Negative (Negative) Urine Urobilinogen <2.0 (<2.0) mg/dL Ur Leukocyte Esterase Small H (Negative) Urine RBC 3 (0-5) /hpf Urine WBC 13 H (0-5) /hpf Ur Squamous Epith Cells <1 (0-4) /hpf Urine Bacteria Rare H (None) /hpf Urine Mucus Rare H (None) /hpf Influenza Type A (PCR) (Not Detectd) Influenza Type B (PCR) (Not Detectd) RSV (PCR) (Not Detectd) SARS-CoV-2 (PCR) (Not Detectd) Disposition <Meir Rivera - Last Filed: 03/08/24 00:08> Is patient prescribed a controlled substance at d/c from ED?: No Time of Disposition: 04:15 <Werner Goodson - Last Filed: 03/19/24 22:19> Clinical Impression: Dehydration, Gastroenteritis, Nausea & vomiting Disposition: HOME SELF-CARE Condition: Good Instructions (If sedation given, give patient instructions): Acute Nausea and Vomiting (ED) Referrals: Jorge Alberto Saleh MD [Primary Care Provider] - 1-2 days
[2024-03-08] MEDS: MAG HYDROX/AL HYDROX/SIMETH 30 ML, HYOSCYAMINE ELIXIR 10 ML PO STA (02:11)
[2024-03-08] MEDS: SODIUM CHLORIDE 0.9% 1,000 ML IV STA (02:11)
[2024-03-08] MEDS: ONDANSETRON 4 MG/2 ML VIAL IVP STA ×2 (02:11→05:08)
[2024-03-08] MEDS: PANTOPRAZOLE 40 MG/10 ML VIAL IV STA (02:14)
[2024-03-08] MEDS: SUCRALFATE 1 GM TAB PO STA (02:16)
[2024-03-08 02:46] LABS: Basophils # (A) 0.2 k/uL (0-0.2); Basophils % (A) 1 %; Eosinophils # (A) 0.3 k/uL (0-0.7); Eosinophils % (A) 2 %; HCT 46.6 % (34.0-46.0); HGB 14.4 gm/dL (11.4-16.0); Lymphocytes # (A) 2.1 k/uL (1.0-4.8); Lymphocytes % (A) 14 %; MCV 84.1 fL (80.0-100.0); Mean Platelet Volume 7.9; Monocytes # (A) 1.2 k/uL (0-1.0); Monocytes % (A) 8 %; Neutrophils # (A) 10.7 k/uL (1.3-7.7); Neutrophils % (A) 74 %; Platelet Count 491 k/uL (150-450); RBC 5.54 m/uL (3.80-5.40); RDW 13.9 % (11.5-15.5); WBC 14.5 k/uL (3.8-10.6)
[2024-03-08 02:53] LABS: Appearance,Urine Clear (Clear); Bacteria,Urine Rare /hpf; Bilirubin,Urine Negative (Negative); Blood,Urine Negative (Negative); Color,Urine Light Yellow; Glucose,Urine (UA) Negative (Negative); Ketones,Urine 1+ (Negative); Leukocyte Esterase,Urine Small (Negative); Mucus,Urine Rare /hpf; Nitrite,Urine Negative (Negative); PH, Urine 6.5 (5.0-8.0); Protein,Urine 1+ (Negative); RBC,Urine 3 /hpf (0-5); Specific Gravity,Urine 1.016 (1.001-1.035); Squamous Epithelial Cell,Urine <1 /hpf (0-4); Urobilinogen,Urine <2.0 mg/dL (<2.0); WBC,Urine 13 /hpf (0-5)
[2024-03-08 03:24] LABS: ALT 35 U/L (4-34); AST 36 U/L (14-36); African American GFR (CKD) 36 (>60 ml/min/1.73 sqM); Albumin 4.5 g/dL (3.5-5.0); Alkaline Phosphatase 99 U/L (38-126); Anion Gap 11 mmol/L; Blood Urea Nitrogen 32 mg/dL (7-17); Calcium 11.6 mg/dL (8.4-10.2); Carbon Dioxide 29 mmol/L (22-30); Chloride 96 mmol/L (98-107); Glucose 107 mg/dL (74-99); Magnesium 2.1 mg/dL (1.6-2.3); Non-African American GFR(CKD) 32 (>60 ml/min/1.73 sqM); Phosphorus 5.1 mg/dL (2.5-4.5); Sodium 136 mmol/L (137-145); Total Protein 7.1 g/dL (6.3-8.2)
[2024-03-08] MEDS: ONDANSETRON 4 MG ODT STARTER PACK 2 TAB BTL PO STA (04:49)
[2024-03-08 05:02] VITALS: RESP 16
[2024-03-08 05:07] VITALS: BP 96/56; PULSE 104; TEMP 98.4
--- NOTE | 2024-03-10 14:45 | XR ---
EXAM: XR Chest, 1 View CLINICAL HISTORY: Pt to ED for evaluation of nausea/vomiting, "acid-reflux" since Friday morning, dark red vomit x7 episodes, pt has chronic condition with adrenal insufficiently and hasn't been able to take home medications. Pt endorses nausea but denies any abdominal pain. Pt denies CP but reports mild SOB. TECHNIQUE: Frontal view of the chest. COMPARISON: No relevant prior studies available. FINDINGS: Lungs: No consolidation or mass. Pleural space: No acute findings Heart: No cardiomegaly. Bones/joints: No acute findings. IMPRESSION: No acute cardiopulmonary process.
--- NOTE | 2024-03-10 14:49 | XR ---
EXAM: XR Abdomen, 1 View CLINICAL HISTORY: Pt to ED for evaluation of nausea/vomiting, "acid-reflux" since Friday morning, dark red vomit x7 episodes, pt has chronic condition with adrenal insufficiently and hasn't been able to take home medications. Pt endorses nausea but denies any abdominal pain. Pt denies CP but reports mild SOB. TECHNIQUE: Frontal upright view of the abdomen/pelvis. 2 images COMPARISON: No relevant prior studies available. FINDINGS: Gastrointestinal tract: No free air. Unremarkable. No dilation. Bones/joints: Unremarkable. No acute fracture. IMPRESSION: No evidence of acute abnormality.
== END 2024-03-08 05:07 | disposition home or self-care (01) ==
LOC: EC 23:16
DX: E86.0 Dehydration (principal); K52.9 Noninfective gastroenteritis and colitis, unspecified; K92.0 Hematemesis; R53.1 Weakness; Z88.2 Allergy status to sulfonamides; Z88.6 Allergy status to analgesic agent
CPT/HCPCS: 36415; 93005; 80053; 83605; 83735; 84100; 85025; 81001; 87636; 71045; 74018; 99284; 96374; 96375; 96361; J2405; S0119; C9113

== ENCOUNTER → 2024-04-27 | Outpatient (CLI) | payer OTHER ==
--- NOTE | 2024-05-19 19:52 | MM ---
Reason for Exam: Screening (asymptomatic). Last mammogram was performed 1 year(s) and 3 month(s) ago. Patient History: Menarche at age 11. First Full-Term at age 19. Postmenopausal. 01/11/2019, US discontinued breast bx RT on the right side. Risk Values: Zoe 5 year model risk: 1.5%. NCI Lifetime model risk: 5.6%. Prior Study Comparison: 07/03/2020 Bilateral Diagnostic Mammogram, [facility]. 12/26/2021 Bilateral Screening Mammogram, [facility]. 01/23/2023 Bilateral MG 3D screening mammo w/cad, [facility]. Tissue Density: There are scattered areas of fibroglandular density. Findings: Analyzed By CAD. There is no suspicious group of microcalcifications or new suspicious mass in either breast. Overall Assessment: Negative, BI-RAD 1 Management: Screening Mammogram of both breasts in 1 year. . Patient should continue monthly self-breast exams. A clinical breast exam by your physician is recommended on an annual basis. This exam should not preclude additional follow-up of suspicious palpable abnormalities. Note on Zoe scores and lifetime risk: 1. A Zoe score greater than 3% is considered moderate risk. If this is the case, consider specialist referral to assess eligibility for a risk reducing agent. 2. If overall lifetime risk for the development of breast cancer is 20% or higher, the patient may qualify for future screening with alternating mammogram and breast MRI. Electronically signed and approved by: Seven Medel M.D. Radiologist
== END | disposition home or self-care (01) ==
LOC: RADMAMWWP 12:00
PROVIDERS: ATTEND Family Medicine
DX: Z12.31 Encounter for screening mammogram for malignant neoplasm of breast
CPT/HCPCS: 77063; 77067

== ENCOUNTER → 2024-04-27 | Outpatient (CLI) | payer OTHER ==
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
== END | disposition home or self-care (01) ==
LOC: RADUSWWP 12:00
PROVIDERS: ATTEND Internal Medicine
DX: E04.2 Nontoxic multinodular goiter (principal)
CPT/HCPCS: 76536